=== PATIENT | female | born 1985 | race Caucasian/White ===

== ENCOUNTER 2018-04-21 13:56 | Inpatient (IN) | payer OTHER, MEDICAID, SELFPAY ==
[2018-04-21] VITALS (9 sets, daily range): BP systolic 102–120; BP diastolic 68–84; PULSE 107–119; RESP 10–21; TEMP 35.7–36.7; O2SAT 99–100; BMI 18.3
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
--- NOTE | 2018-04-21 14:00 | DI.RAD.S_ITS ---
PROCEDURE: XR CHEST 1V INDICATIONS: suspected DKA, altered mental status TECHNIQUE: One view of the chest was acquired. COMPARISON: [facility], , CHEST 1 VIEW, 09/25/2017, 8:35. FINDINGS: Surgical changes and devices: None. Lungs and pleura: No pleural effusions or pneumothorax. Lungs are clear. Mediastinum: Mediastinal contours appear normal. Heart size is normal. Bones and chest wall: No suspicious bony lesions. Overlying soft tissues appear unremarkable. IMPRESSION: No acute cardiopulmonary disease process. Dictated by: Reyna Higuera MD, PhD on 04/21/2018 at 15:12 Approved by: Reyna Higuera MD, PhD on 04/21/2018 at 15:13
[2018-04-21] MEDS: SODIUM CHLORIDE 0.9% 1,000 ML 1000 ML IV ×2 (14:20→17:01)
[2018-04-21] MEDS: ONDANSETRON 4 MG/2 ML INJ IV ×2 (14:36→16:53)
[2018-04-21 14:43] LABS: pH ABG 7.09 (7.35-7.45)
[2018-04-21 14:44] LABS: HCO3 ABG 6 mmol/L (23-27); PCO2 ABG 20.3 mmHg (35-45); PO2 ABG 131 mmHg (80-105); TCO2 ABG 7 mmol/L (23-27)
[2018-04-21 14:45] LABS: Oxygen Saturation ABG 98 % (95-100)
[2018-04-21 14:47] LABS: Basophils Percent Auto 0.6 % (0-2); Eosinophils Percent Auto 0.2 % (2-4); Hematocrit 48.2 % (36-46); Lymphocytes Percent Auto 8.3 % (25-40); Mean Corpuscular HGB Conc 33.3 % (30-36); Mean Corpuscular Hemoglobin 33.7 PG (26-34); Mean Corpuscular Volume 101.3 fL (80-100); Monocytes Percent Auto 5.4 % (3-14); Neutrophils Absolute Auto 11900 /uL (3000-5900); Neutrophils Percent Auto 85.5 % (50-75); Platelet Count 274 X10^3/uL (150-400); Red Blood Cell Count 4.76 X10^6/uL (4.0-5.2); Red Cell Distribution Width 13.2 % (11.6-14.8); White Blood Cell Count 13.9 X10^3/uL (4.5-11.0)
[2018-04-21 14:52] LABS: Add Manual Diff / Slide Review SLIDE REVIEW; HEMOLYSIS < 15 (0-50)
--- NOTE | 2018-04-21 14:55 | PC.NURSE ---
1415 Pt vomiting. Notified provider. Gave Zofran, per order.
[2018-04-21 14:57] LABS: Alanine Aminotransferase 38 IU/L (9-52); Albumin 3.6 g/dL (3.5-5.0); Albumin Globulin Ratio 1.6 (1.0-2.8); Alkaline Phosphatase 116 U/L (38-126); Aspartate Aminotransferase 26 IU/L (14-36); BUN Creatinine Ratio 27.8 (6-22); Bilirubin Total 0.3 mg/dL (0.2-1.3); Blood Urea Nitrogen 25 mg/dL (7-17); Calcium 7.9 mg/dL (8.4-10.2); Chloride 96 mmol/L (98-107); Estimated Glomerular Filt Rate > 60.0 mL/min (>60); Globulin 2.3 g/dL (1.7-4.1); Potassium 4.2 mmol/L (3.4-5.1); Sodium 132 mmol/L (137-145); Total Protein 5.9 g/dL (6.3-8.2)
[2018-04-21 14:58] LABS: Lactate (Lactic Acid) 0.9 mmol/L (0.7-2.1)
--- NOTE | 2018-04-21 15:08 | PC.NURSE ---
Pt receiving warmed IV fluids. Covered with warm blankets.
[2018-04-21 15:09] LABS: Urine Amphetamines Negative (Negative); Urine Barbiturates Negative (Negative); Urine Benzodiazepines Negative (Negative); Urine Cocaine Negative (Negative); Urine MDMA Negative (Negative); Urine Methadone Negative (Negative); Urine Methamphetamines Negative (Negative); Urine Morphine/Opi cutoff 2000 Negative (Negative); Urine Phencyclidine Negative (Negative); Urine THC Negative (Negative); Urine Tricyclic Antidepressant Negative (Negative)
[2018-04-21 15:10] LABS: Urine Oxycodone Negative (Negative)
[2018-04-21 15:12] LABS: Bacteria Urine None Seen; RBC Urine None Seen (0-5/HPF); WBC Urine None Seen (0-5/HPF)
[2018-04-21] MEDS: SODIUM CHLORIDE 0.9% 1,000 ML 150 ML IV (15:16)
[2018-04-21 15:19] LABS: Carbon Dioxide 7 mmol/L (22-32); Glucose 575 mg/dL (70-100)
[2018-04-21 15:39] LABS: Procalcitonin < 0.05 ng/mL (<0.5)
[2018-04-21 15:42] LABS: Creatine Kinase 37 U/L (30-135)
[2018-04-21 15:44] LABS: Culture Indicated Urine Cult Not Indicated; Urine Comments Microscopic Normal
--- NOTE | 2018-04-21 15:46 | DI.CT.S_ITS ---
PROCEDURE: CT HEAD/BRAIN W CON INDICATIONS: Acute altered mental status TECHNIQUE: 4.5 mm thick angled axial sections acquired from the foramen magnum to the vertex after the administration of intravenous contrast, with coronal and sagittal reformats. For radiation dose reduction, the following was used: automated exposure control, adjustment of mA and/or kV according to patient size. COMPARISON: None. FINDINGS: Image quality: Excellent. CSF Spaces: Basal cisterns are patent. No extra-axial fluid collections. Ventricles are normal in size and shape. Brain: No midline shift. No intracranial bleeds or masses. No abnormal intracranial enhancement. Taveras-white interface appears normal. Skull and face: Calvarium and visualized facial bones appear intact, without suspicious lesions. Sinuses: Visualized sinuses and mastoids are clear. IMPRESSION: No acute intracranial disease process. Dictated by: Reyna Higuera MD, PhD on 04/21/2018 at 17:01 Approved by: Reyna Higuera MD, PhD on 04/21/2018 at 17:04
[2018-04-21] MEDS: INSULIN REGULAR 100 UNIT/ML 3 ML VIAL IV (16:06)
[2018-04-21] MEDS: INSULIN REGULAR, HUMAN 100 UNIT in SODIUM CHLORIDE 0.9% 100 ML IV (16:16)
--- NOTE | 2018-04-21 16:55 | PC.NURSE ---
Pt to radiology for head CT. While laying supine, she began to try to sit up. States she had to vomit. Assisted pt seated position and she vomited into emesis bag. Lung sounds are clear bilaterally. Provider notified. Zofran administered per order. Pt able oriented to self and situation at this time.
[2018-04-21 17:14] LABS: Macrocytosis 1+
--- NOTE | 2018-04-21 18:08 | PC.NURSE ---
Pt BG down to 288 prior to transfer to ICU. Per Dr. Jimenez, turned down NaCl to 250mL/hr from bolus rate. Notified ICU nurse prior to transfer.
--- NOTE | 2018-04-21 19:44 | PM.HP.1 ---
History of Present Illness Date Patient Seen: 04/21/18 Time Patient Seen: 17:12 Chief complaint: DKA, decreasd LOC Narrative: Patient is a 32 years of age female with history of diabetes mellitus type 1 the past 11 years. Patient states she normally takes Lantus 25 units twice daily along with a insulin sliding scale before meals and at bedtime. Patient notes over the past few days she states she has been in her words out of it so her boyfriend has been trying to administer her insulin for her. As I tried to understand what she meant by being out of it she seemed to be easily annoyed and certainly verbally rude and she responded. I was trying to establish she was feeling ill and in what manner that would cause her to lay in bed for 2-3 days. According to the patient, her boyfriend was trying to get her to come to the hospital to be seen over the past 2-3 days. Patient states she did want to do so because she did not feel he would adequately help her anyway. Urine tox screen was negative. Patient states that the glucose was reading high so greater than 400 for the past 2-3 days. Patient was really not in the mood to answer my questions and became more rude do the length of her conversation. Patient History Medical History Insulin dependent diabetes mellitus (Acute) Family & Social History Social History: household members significant other Prior Living Arrangements Apartment/Condo Safety & Behavioral: Feels Safe in Current Unwilling to Answer Environment Been Physically Hurt or Unwilling to Answer Threatened By a Person Suicidal Ideation Description None Suicide Plan Description No Plan Tobacco & Substance use: Tobacco type cigarettes Smoking Status Current every day smoker Smoking packs per day 0.5 alcohol intake former alcohol intake frequency holiday/special occasion Substance Use Type does not use Comment: Social history Patient notes she lives with her boyfriend. She smokes a half a pack of cigarettes per day. Denies alcohol abuse. Denies illegal street drug use. 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 She says she has not been able to work due to an abscess and blood clot in her leg. Patient does note however that the abscess and trouble with her lower extremity blood clot resolved about a year ago. Family history Patient notes she has a mother and a brother with diabetes Meds Home Medications Medication Instructions Recorded Confirmed Type insulin glargine [Lantus U-100 25 unit SQ BID #0 03/12/17 History Insulin] aspirin 81 mg PO QDAY #0 04/09/17 History cyclobenzaprine 10 mg PO TIDP PRN #0 04/09/17 History ibuprofen 400 mg PO #0 04/09/17 History lisinopril 2.5 mg PO QDAY #0 04/09/17 History fluconazole [Diflucan] 100 mg PO QDAY #5 09/27/17 Rx insulin aspart U-100 [Novolog 0 unit SQ QIDACHS 30 Days #0 09/27/17 Rx Flexpen U-100 Insulin] insulin aspart U-100 [Novolog 10 unit SQ TIDCC 30 Days #0 09/27/17 Rx Flexpen U-100 Insulin] Allergies Allergy/AdvReac Type Severity Reaction Status Date / Time No Known Drug Allergies Allergy Verified 04/21/18 15:21 Review of Systems Review of Systems A 10 point system reviewed with patient was essentially negative except for the complaint that she was out of it in her words and her sugars were running high. She denied having any recent fevers or chills or cough nausea. Exam Vital Signs (past 8 hours): - 04/21/18 14:05 04/21/18 14:27 04/21/18 14:30 Temperature 98.0 F 98.0 F 96.3 F L Pulse Rate 114 H 114 H 111 H Respiratory Rate 21 21 16 Blood Pressure 102/71 Blood Pressure [Left Arm] 102/71 110/84 Pulse Oximetry 100 100 100 04/21/18 15:45 04/21/18 16:45 04/21/18 18:00 Temperature 98.0 F 97.5 F L Pulse Rate 112 H 119 H 113 H Respiratory Rate 12 16 13 Blood Pressure 105/69 Blood Pressure [Left Arm] 103/74 105/68 Pulse Oximetry 100 100 99 Oxygen Delivery Method Room Air Narrative Exam Narrative: Physical exam General appearance patient appears quite edematous since having been given at least 4 L of fluid including IV fluids given in the ER. Patient is easily arousable and certainly easily agitated. Psychiatric patient is well oriented mood is sour in her behavior towards myself and staff. Patient appears to have a negative attitude in general at this time. Skin no rashes or lesions nonjaundiced turgor appears normal patient actually appears to be a bit edematous Eyes pupils are equal round and reactive to light Ears nose and throat hearing appears grossly intact nose septum to midline no bleeding no oropharyngeal lesions noted Respiratory fairly clear to auscultation no wheezes crackles Cardiovascular regular rhythm rate of about 100 per minute no murmurs Gastrointestinal early soft nontender positive bowel sounds no masses Extremities are warm Neurologic no focal neurologic changes cranial nerves 2-12 grossly intact Lymphatics no lymphadenopathy to neck or axilla Objective Labs Result Diagrams: 04/21/18 14:25 04/21/18 14:25 Labs: Laboratory Results - last 24 hr 04/21/18 04/21/18 04/21/18 14:20 14:25 14:25 WBC 13.9 H RBC 4.76 Hgb 16.0 Hct 48.2 H MCV 101.3 H MCH 33.7 MCHC 33.3 RDW 13.2 Plt Count 274 Neut % (Auto) 85.5 H Lymph % (Auto) 8.3 L [place] % (Auto) 5.4 Eos % (Auto) 0.2 L Baso % (Auto) 0.6 Neut # (Auto) 83949 H RBC Morphology Not Reportable Macrocytosis 1+ H ABG pH 7.09 L* ABG pCO2 20.3 L* ABG pO2 131 H ABG HCO3 6 L ABG Total CO2 7 L ABG O2 Saturation 98 ABG Base Excess -24.0 L Sodium Potassium Chloride Carbon Dioxide BUN Creatinine Estimated GFR BUN/Creatinine Ratio Glucose Lactate Calcium Total Bilirubin AST ALT Alkaline Phosphatase Total Creatine Kinase Total Protein Albumin Globulin Albumin/Globulin Ratio Procalcitonin < 0.05 Urine RBC Urine WBC Urine Bacteria Ur Culture Indicated? Micro UA Comment Urine Opiates Screen Ur Oxycodone Screen Urine Methadone Screen Ur Barbiturates Screen U Tricyclic Antidepress Ur Phencyclidine Scrn Ur Amphetamines Screen U Methamphetamines Scrn Ur MDMA Scrn (Ecstasy) U Benzodiazepines Scrn Urine Cocaine Screen U Marijuana (THC) Screen Ketones 04/21/18 04/21/18 04/21/18 14:25 14:25 14:46 WBC RBC Hgb Hct MCV MCH MCHC RDW Plt Count Neut % (Auto) Lymph % (Auto) [place] % (Auto) Eos % (Auto) Baso % (Auto) Neut # (Auto) RBC Morphology Macrocytosis ABG pH ABG pCO2 ABG pO2 ABG HCO3 ABG Total CO2 ABG O2 Saturation ABG Base Excess Sodium 132 L Potassium 4.2 Chloride 96 L Carbon Dioxide 7 L* BUN 25 H Creatinine 0.90 Estimated GFR > 60.0 BUN/Creatinine Ratio 27.8 H Glucose 575 H* Lactate 0.9 Calcium 7.9 L Total Bilirubin 0.3 AST 26 ALT 38 Alkaline Phosphatase 116 Total Creatine Kinase Total Protein 5.9 L Albumin 3.6 Globulin 2.3 Albumin/Globulin Ratio 1.6 Procalcitonin Urine RBC Urine WBC Urine Bacteria Ur Culture Indicated? Micro UA Comment Urine Opiates Screen Negative Ur Oxycodone Screen Negative Urine Methadone Screen Negative Ur Barbiturates Screen Negative U Tricyclic Antidepress Negative Ur Phencyclidine Scrn Negative Ur Amphetamines Screen Negative U Methamphetamines Scrn Negative Ur MDMA Scrn (Ecstasy) Negative U Benzodiazepines Scrn Negative Urine Cocaine Screen Negative U Marijuana (THC) Screen Negative Ketones 14.60 H 04/21/18 04/21/18 14:46 Unknown WBC RBC Hgb Hct MCV MCH MCHC RDW Plt Count Neut % (Auto) Lymph % (Auto) [place] % (Auto) Eos % (Auto) Baso % (Auto) Neut # (Auto) RBC Morphology Macrocytosis ABG pH ABG pCO2 ABG pO2 ABG HCO3 ABG Total CO2 ABG O2 Saturation ABG Base Excess Sodium Potassium Chloride Carbon Dioxide BUN Creatinine Estimated GFR BUN/Creatinine Ratio Glucose Lactate Calcium Total Bilirubin AST ALT Alkaline Phosphatase Total Creatine Kinase 37 Total Protein Albumin Globulin Albumin/Globulin Ratio Procalcitonin Urine RBC None seen Urine WBC None seen Urine Bacteria None seen Ur Culture Indicated? Cult not indicated Micro UA Comment Microscopic normal Urine Opiates Screen Ur Oxycodone Screen Urine Methadone Screen Ur Barbiturates Screen U Tricyclic Antidepress Ur Phencyclidine Scrn Ur Amphetamines Screen U Methamphetamines Scrn Ur MDMA Scrn (Ecstasy) U Benzodiazepines Scrn Urine Cocaine Screen U Marijuana (THC) Screen Ketones Assessment & Plan Plan: Assessment/Plan Narrative: 1. Diabetic ketoacidosis Note anion gap of 35 on admission and serum bicarb of 7. ABG reported pH is 7.09 and exceeding 6.9. Serum bicarb not indicated. IV fluids given aggressively since her presentation in the ER. Since edematous as needed at present will reduce the IV rate. Glucose level 211 at present. Will change IV to D5 half normal at 75 cc an hour or she starts eating a reasonable portion in meal. Will start patient on Lantus at 20 units subcu once and provide a medium dose insulin sliding scale with aspart. Patient will likely be a good candidate for discharge tomorrow in a.m.. We will monitor her lab work tonight and tomorrow in a.m.. Time spent to manage patient 65 min
[2018-04-21] MEDS: DEXTROSE 5%-0.45% NS 1,000 ML 100 ML IV (20:30)
[2018-04-21] MEDS: INSULIN GLARGINE 100 UNIT/ML 3ML PEN 20 UNIT SUBCUT (21:27)
[2018-04-21 21:34] LABS: BUN Creatinine Ratio 33.3 (6-22); Blood Urea Nitrogen 20 mg/dL (7-17); Carbon Dioxide 13 mmol/L (22-32); Chloride 109 mmol/L (98-107); Estimated Glomerular Filt Rate > 60.0 mL/min (>60); Glucose 205 mg/dL (70-100); Potassium 3.8 mmol/L (3.4-5.1); Sodium 138 mmol/L (137-145)
[2018-04-21 21:48] LABS: HEMOLYSIS 20 (0-50)
[2018-04-21 21:49] LABS: Calcium 6.9 mg/dL (8.4-10.2)
--- NOTE | 2018-04-21 23:10 | PC.NURSE ---
kassi note Pt lethargic. When physician came to interview patient, pt irritable, using profanity. Resistant to answering questions for admission assessment. Pt did wake up enough to eat sandwich, drink juice. Pt called boyfriend to bring clothes. Boyfriend found in bed with patient, sleeping. Asked boyfriend to leave and he was agreeable. Pt now crying. Explained that overnight visitors discouraged in ICU.
[2018-04-21] MEDS: INSULIN ASPART 100 UNIT/ML INSULN PEN SUBCUT (23:45)
[2018-04-22] VITALS (9 sets, daily range): BP systolic 94–113; BP diastolic 58–72; PULSE 98–115; RESP 12–16; TEMP 37–37.2; O2SAT 95–98
--- NOTE | 2018-04-22 06:21 | PC.NURSE ---
Wellness Trainer Note: 0000: Sleeping, arousable. Pt follows commands but does not want to sit up and converse. Vital signs stable. Pt received Novalog insulin at 2330 by Nila Arana RN. Carbone catheter patent, urine is clear yellow. IVs are saline-locked. Face and hands are puffy and with pink mottling. 0200: Sleeping, arousable.
[2018-04-22 06:22] LABS: Fractionated Inspired Oxygen 21; HCO3 ABG 19 mmol/L (23-27); Oxygen Saturation ABG 96 % (95-100); PCO2 ABG 37.6 mmHg (35-45); PO2 ABG 88 mmHg (80-105); TCO2 ABG 20 mmol/L (23-27); pH ABG 7.31 (7.35-7.45)
[2018-04-22 06:23] LABS: Add Manual Diff / Slide Review NO; Basophils Percent Auto 0.7 % (0-2); Eosinophils Percent Auto 1.1 % (2-4); Hematocrit 43.9 % (36-46); Hemoglobin 15.3 g/dL (12.0-16.0); Lymphocytes Percent Auto 26.2 % (25-40); Mean Corpuscular HGB Conc 34.9 % (30-36); Mean Corpuscular Hemoglobin 33.6 PG (26-34); Mean Corpuscular Volume 96.4 fL (80-100); Monocytes Percent Auto 7.9 % (3-14); Neutrophils Absolute Auto 6400 /uL (3000-5900); Neutrophils Percent Auto 64.1 % (50-75); Platelet Count 240 X10^3/uL (150-400); Red Blood Cell Count 4.56 X10^6/uL (4.0-5.2); White Blood Cell Count 10.1 X10^3/uL (4.5-11.0)
[2018-04-22 06:33] LABS: Blood Urea Nitrogen 18 mg/dL (7-17); Calcium 7.6 mg/dL (8.4-10.2); Carbon Dioxide 22 mmol/L (22-32); Chloride 108 mmol/L (98-107); Estimated Glomerular Filt Rate > 60.0 mL/min (>60); Glucose 75 mg/dL (70-100); HEMOLYSIS 18 (0-50); Potassium 3.3 mmol/L (3.4-5.1); Sodium 138 mmol/L (137-145)
[2018-04-22] MEDS: INSULIN ASPART 100 UNIT/ML INSULN PEN SUBCUT ×2 (08:43→12:13)
[2018-04-22] MEDS: SODIUM CHLORIDE 0.9% FLUSH 10 ML IV (08:44)
[2018-04-22] MEDS: POTASSIUM CHLORIDE 20 MEQ/15 ML UDC 40 MEQ PO (11:04)
--- NOTE | 2018-04-22 11:38 | P.DS_ITS ---
History of Present Illness Date Patient Seen: 04/22/18 Time Patient Seen: 11:27 Chief complaint: DKA, decreasd LOC Narrative: Patient is a 32 years of age female with history of diabetes mellitus type 1 the past 11 years. Patient states she normally takes Lantus 25 units twice daily along with a insulin sliding scale before meals and at bedtime. Patient notes over the past few days she states she has been in her words out of it so her boyfriend has been trying to administer her insulin for her. As I tried to understand what she meant by being out of it she seemed to be easily annoyed and certainly verbally rude as she responded. I was trying to establish why she was feeling so ill that would cause her to lay in bed for 2-3 days. According to the patient, her boyfriend was trying to get her to come to the hospital to be seen over the past 2-3 days. Patient states she did want to do so because she did not feel he would adequately help her anyway. Urine tox screen was negative. Patient states that the glucose was reading high so greater than 400 for the past 2-3 days. Patient was really not in the mood to answer my questions and became more rude doing our conversation. Discharge Providers Date of admission: 04/21/18 16:02 Discharge provider: Job Lu MD Summary Discharge Diagnosis: 1. Diabetic ketoacidosis resolved 2. Hypokalemia resolved Hospital Course: Patient is a 32 years of age female who laid in bed for 2-3 days and had her boyfriend trying to administer the insulin. It is certainly unclear why she would be laying on the bed as she did. Patient has been found consistently rude to all the staff, including myself. There may be an underlying antisocial personality disorder. Patient appears to be avoiding conversation and direct eye contact. I have visited the patient on different occasions and each time she just lays in the bed with her eyes closed answering the questions eventually. The nursing staff notes that the patient be seem sleeping but then appropriately respond if offered something to eat or drink. Patient notes that she has not been employed for the past 3 years. She was very vague about her work history and social situation. Urine tox screen was negative on admission. Compliance with her home medication is questionable. Patient responded to the fluids provided and the insulin IV infusion was terminated fairly early in hospital course once the reported glucose was approximately 200. Patient was resumed on her usual home dose of Lantus. Patient in a.m. today on day of discharge claims that she takes Lantus 30 units b.i.d.. Pharmacy could not corroborate what dosing of Lantus she takes. Status at Discharge Cognitive/behavioral status at discharge: Cognition appears to be intact though her behavior is certainly below appropriate unusual. As stated patient has been rude to the staff and unappologetic. There may be an underlying personality disorder to explain her behavior. Functional status at discharge: independent ambulation Time Spent with Patient Greater than 30 minutes (40 min) Exam Vital Signs (past 8 hours): - 04/22/18 04:00 04/22/18 05:00 04/22/18 06:00 Temperature Pulse Rate 104 H 102 H 106 H Respiratory Rate 16 16 14 Blood Pressure 113/65 94/67 99/71 Pulse Oximetry 95 04/22/18 08:00 04/22/18 09:00 Temperature 98.6 F Pulse Rate 114 H 98 H Respiratory Rate 14 13 Blood Pressure 102/58 L 96/61 Pulse Oximetry 96 Oxygen Delivery Method Room Air Oxygen Flow Rate 0 Narrative Exam Narrative: General appearance patient is not particularly cooperative or polite toward staff. Patient appears to answer questions appropriately when asked. Patient remains in her supine sleep position while staff may trial engage with her. I found this to be true and her encounter with me as well. Respiratory clear to auscultation no wheezes no crackles Cardiovascular regular rate rhythm no murmurs GI is benign soft nontender Neurologic no focal neurologic changes Objective Labs Result Diagrams: 04/22/18 06:15 04/22/18 06:15 Labs: Laboratory Results - last 24 hr 04/21/18 04/21/18 04/21/18 14:20 14:25 14:25 WBC 13.9 H RBC 4.76 Hgb 16.0 Hct 48.2 H MCV 101.3 H MCH 33.7 MCHC 33.3 RDW 13.2 Plt Count 274 Neut % (Auto) 85.5 H Lymph % (Auto) 8.3 L [place] % (Auto) 5.4 Eos % (Auto) 0.2 L Baso % (Auto) 0.6 Neut # (Auto) 04894 H RBC Morphology Not Reportable Macrocytosis 1+ H ABG pH 7.09 L* ABG pCO2 20.3 L* ABG pO2 131 H ABG HCO3 6 L ABG Total CO2 7 L ABG O2 Saturation 98 ABG Base Excess -24.0 L FiO2 Sodium Potassium Chloride Carbon Dioxide BUN Creatinine Estimated GFR BUN/Creatinine Ratio Glucose Lactate Calcium Total Bilirubin AST ALT Alkaline Phosphatase Total Creatine Kinase Total Protein Albumin Globulin Albumin/Globulin Ratio Procalcitonin < 0.05 Urine RBC Urine WBC Urine Bacteria Ur Culture Indicated? Micro UA Comment Nasal Screen MRSA (PCR) Urine Opiates Screen Ur Oxycodone Screen Urine Methadone Screen Ur Barbiturates Screen U Tricyclic Antidepress Ur Phencyclidine Scrn Ur Amphetamines Screen U Methamphetamines Scrn Ur MDMA Scrn (Ecstasy) U Benzodiazepines Scrn Urine Cocaine Screen U Marijuana (THC) Screen Ketones 04/21/18 04/21/18 04/21/18 14:25 14:25 14:46 WBC RBC Hgb Hct MCV MCH MCHC RDW Plt Count Neut % (Auto) Lymph % (Auto) [place] % (Auto) Eos % (Auto) Baso % (Auto) Neut # (Auto) RBC Morphology Macrocytosis ABG pH ABG pCO2 ABG pO2 ABG HCO3 ABG Total CO2 ABG O2 Saturation ABG Base Excess FiO2 Sodium 132 L Potassium 4.2 Chloride 96 L Carbon Dioxide 7 L* BUN 25 H Creatinine 0.90 Estimated GFR > 60.0 BUN/Creatinine Ratio 27.8 H Glucose 575 H* Lactate 0.9 Calcium 7.9 L Total Bilirubin 0.3 AST 26 ALT 38 Alkaline Phosphatase 116 Total Creatine Kinase Total Protein 5.9 L Albumin 3.6 Globulin 2.3 Albumin/Globulin Ratio 1.6 Procalcitonin Urine RBC Urine WBC Urine Bacteria Ur Culture Indicated? Micro UA Comment Nasal Screen MRSA (PCR) Urine Opiates Screen Negative Ur Oxycodone Screen Negative Urine Methadone Screen Negative Ur Barbiturates Screen Negative U Tricyclic Antidepress Negative Ur Phencyclidine Scrn Negative Ur Amphetamines Screen Negative U Methamphetamines Scrn Negative Ur MDMA Scrn (Ecstasy) Negative U Benzodiazepines Scrn Negative Urine Cocaine Screen Negative U Marijuana (THC) Screen Negative Ketones 14.60 H 04/21/18 04/21/18 04/21/18 14:46 18:05 21:16 WBC RBC Hgb Hct MCV MCH MCHC RDW Plt Count Neut % (Auto) Lymph % (Auto) [place] % (Auto) Eos % (Auto) Baso % (Auto) Neut # (Auto) RBC Morphology Macrocytosis ABG pH ABG pCO2 ABG pO2 ABG HCO3 ABG Total CO2 ABG O2 Saturation ABG Base Excess FiO2 Sodium 138 Potassium 3.8 Chloride 109 H Carbon Dioxide 13 L BUN 20 H Creatinine 0.60 Estimated GFR > 60.0 BUN/Creatinine Ratio 33.3 H Glucose 205 H D Lactate Calcium 6.9 L Total Bilirubin AST ALT Alkaline Phosphatase Total Creatine Kinase Total Protein Albumin Globulin Albumin/Globulin Ratio Procalcitonin Urine RBC None seen Urine WBC None seen Urine Bacteria None seen Ur Culture Indicated? Cult not indicated Micro UA Comment Microscopic normal Nasal Screen MRSA (PCR) Negative for mrsa Urine Opiates Screen Ur Oxycodone Screen Urine Methadone Screen Ur Barbiturates Screen U Tricyclic Antidepress Ur Phencyclidine Scrn Ur Amphetamines Screen U Methamphetamines Scrn Ur MDMA Scrn (Ecstasy) U Benzodiazepines Scrn Urine Cocaine Screen U Marijuana (THC) Screen Ketones 04/21/18 04/22/18 04/22/18 Unknown 06:00 06:15 WBC 10.1 RBC 4.56 Hgb 15.3 Hct 43.9 MCV 96.4 D MCH 33.6 MCHC 34.9 RDW 13.0 Plt Count 240 Neut % (Auto) 64.1 D Lymph % (Auto) 26.2 [place] % (Auto) 7.9 Eos % (Auto) 1.1 L Baso % (Auto) 0.7 Neut # (Auto) 6400 H RBC Morphology Macrocytosis ABG pH 7.31 L ABG pCO2 37.6 ABG pO2 88 ABG HCO3 19 L ABG Total CO2 20 L ABG O2 Saturation 96 ABG Base Excess -7.0 L FiO2 21 Sodium Potassium Chloride Carbon Dioxide BUN Creatinine Estimated GFR BUN/Creatinine Ratio Glucose Lactate Calcium Total Bilirubin AST ALT Alkaline Phosphatase Total Creatine Kinase 37 Total Protein Albumin Globulin Albumin/Globulin Ratio Procalcitonin Urine RBC Urine WBC Urine Bacteria Ur Culture Indicated? Micro UA Comment Nasal Screen MRSA (PCR) Urine Opiates Screen Ur Oxycodone Screen Urine Methadone Screen Ur Barbiturates Screen U Tricyclic Antidepress Ur Phencyclidine Scrn Ur Amphetamines Screen U Methamphetamines Scrn Ur MDMA Scrn (Ecstasy) U Benzodiazepines Scrn Urine Cocaine Screen U Marijuana (THC) Screen Ketones 04/22/18 06:15 WBC RBC Hgb Hct MCV MCH MCHC RDW Plt Count Neut % (Auto) Lymph % (Auto) [place] % (Auto) Eos % (Auto) Baso % (Auto) Neut # (Auto) RBC Morphology Macrocytosis ABG pH ABG pCO2 ABG pO2 ABG HCO3 ABG Total CO2 ABG O2 Saturation ABG Base Excess FiO2 Sodium 138 Potassium 3.3 L Chloride 108 H Carbon Dioxide 22 BUN 18 H Creatinine 0.50 L Estimated GFR > 60.0 BUN/Creatinine Ratio 36.0 H Glucose 75 D Lactate Calcium 7.6 L Total Bilirubin AST ALT Alkaline Phosphatase Total Creatine Kinase Total Protein Albumin Globulin Albumin/Globulin Ratio Procalcitonin Urine RBC Urine WBC Urine Bacteria Ur Culture Indicated? Micro UA Comment Nasal Screen MRSA (PCR) Urine Opiates Screen Ur Oxycodone Screen Urine Methadone Screen Ur Barbiturates Screen U Tricyclic Antidepress Ur Phencyclidine Scrn Ur Amphetamines Screen U Methamphetamines Scrn Ur MDMA Scrn (Ecstasy) U Benzodiazepines Scrn Urine Cocaine Screen U Marijuana (THC) Screen Ketones Discharge Plan Discharge Plan Patient Disposition: Home Provider Discharge Instructions Diet: Carb-consistent/Diabetic Skin/Wound/Dressing Care Report to your healthcare provider any signs of infection, such as:: chills, fever, night sweats, increased pain and unusual drainage Discharge Data Attending Provider: Job Lu Admit Date/Time: 04/21/18 16:02
--- NOTE | 2018-04-22 12:22 | PC.NURSE ---
Pt mostly sleeping but rouses easily. Irritable with staff stating Stop asking me F...ing questions. I am not going to answer them Attempted to give teaching on diabetic management but pt refused stating I know what to do. Requesting food - given breakfast at 0930, but she states she wants another fullbreakfast at lunchtime. Feels hungry. noted eating crackers and cookies throughout the am. CBG at 1200 = 254 - given 5 units of coverage and then discharged. IV x2 removed and pt signed paperwork. Pt expressing dissatisfaction with staff. No one has monitored me while I was here. Pt advised that we monitored her every 4 hours and hourly vital signs. Carbone catheter removed and pt dressed and taken by wheelchair to waiting vehicle. Pt advised to contact PCP as soon as possible. Given script for lantus.
--- NOTE | 2018-04-22 14:13 | CM.DPNOTE ---
DCP/Note: Faxed initial clinical to [facility] at . [facility]
[2018-04-30 13:51] LABS: Fractionated Inspired Oxygen 0.21
== END 2018-04-22 12:36 | disposition home or self-care (01) | DRG 420 ==
LOC: ED 15:57 → ICU 16:03
PROVIDERS: Admitting Provider Internal Medicine; Emergency Provider Emergency Medicine; Visit Provider Internal Medicine
DX: E10.10 Type 1 diabetes mellitus with ketoacidosis without coma (principal); Z79.4 Long term (current) use of insulin; F17.210 Nicotine dependence, cigarettes, uncomplicated; E87.6 Hypokalemia; R40.0 Somnolence
CPT/HCPCS: 36415; 36591; 36600; 51701; 70460; 71045; 80048; 80053; 80305; 81003; 81015; 81025; 82009; 82550; 82805; 82962; 83605; 84145; 85025; 87040; 87797; 93005; 93010; 96361; 96365; 96367; 96375; 96376; 99285; 99291; J2405

== ENCOUNTER 2018-07-13 08:55 | Inpatient (IN) | payer OTHER, MEDICAID, SELFPAY ==
[2018-04-21 18:57] VITALS: BMI 18.3
[2018-07-13] VITALS (18 sets, daily range): BP systolic 93–116; BP diastolic 48–91; PULSE 96–119; RESP 11–30; TEMP 35.8–37.6; O2SAT 94–100; BMI 16.2
--- NOTE | 2018-07-13 09:00 | DI.RAD.S_ITS ---
PROCEDURE: XR HAND LT MIN 3V INDICATIONS: Left middle finger infection TECHNIQUE: 3 views of the hand(s) acquired. COMPARISON: None. FINDINGS: Bones: No fractures or dislocations. Carpal bones are normally aligned. No suspicious bony lesions. Soft tissues: No suspicious soft tissue calcifications. IMPRESSION: No acute fracture. No osseous lesion. If clinical suspicion and/or symptoms persist, further assessment with repeat plainfilms, or advanced imaging (e.g., CT, MRI, or bone scan) may be helpful for further assessment. Dictated by: Bryon Plascencia M.D. on 07/13/2018 at 9:52 Approved by: Bryon Plascencia M.D. on 07/13/2018 at 9:52
--- NOTE | 2018-07-13 09:00 | ED.AMS ---
HPI - Altered Mental Status General Chief Complaint: Diabetic Problem Stated Complaint: Unresponsive, Diabetic Time Seen by Provider: 07/13/18 08:59 Source: EMS Mode of arrival: EMS Limitations: altered mental status History of Present Illness HPI narrative: Patient unable to provide any history of present illness. Patient arrived by would be EMS after they were called by the patient's . Is reported that the patient is a diabetic. It appears that she has had an infection of her left finger for several days/weeks. Unknown if she is currently taking any antibiotics or has been seen for this. Is reported by EMS that they were told by the patient's that for the past several days she has been ?unresponsive? except to very painful stimuli. It was reported by the patient's that this morning the patient was even more unresponsive even to painful stimuli. Was also reported the patient was having deep breathing. They were called. Prior to arrival EMS started 2 18 gauge IVs and the patient was given 800 cc of normal saline. No Narcan was given. There is no signs of reports of trauma. Related Data Home Medications Medication Instructions Recorded Confirmed aspirin 81 mg PO QDAY #0 04/09/17 cyclobenzaprine 10 mg PO TIDP PRN #0 04/09/17 ibuprofen 400 mg PO #0 04/09/17 lisinopril 2.5 mg PO QDAY #0 04/09/17 Previous Rx's Medication Instructions Recorded fluconazole [Diflucan] 100 mg PO QDAY #5 09/27/17 insulin aspart U-100 [Novolog 0 unit SQ QIDACHS 30 Days #0 09/27/17 Flexpen U-100 Insulin] insulin aspart U-100 [Novolog 10 unit SQ TIDCC 30 Days #0 09/27/17 Flexpen U-100 Insulin] insulin glargine [Lantus U-] 30 unit SUBCUT BID #10 ml 04/22/18 Allergies Allergy/AdvReac Type Severity Reaction Status Date / Time No Known Drug Allergies Allergy Verified 04/21/18 15:21 Review of Systems Review of Systems Unable to obtain secondary to the patient's medical condition Exam Initial Vital Signs Initial Vital Signs: Vital Signs Temperature 96.6 F L 07/13/18 09:05 Pulse Rate 104 H 07/13/18 09:05 Respiratory Rate 26 H 07/13/18 09:05 Blood Pressure 109/81 07/13/18 09:05 Pulse Oximetry 100 07/13/18 09:05 Const General: comfortable, well groomed, in distress, No anxious, No combative, ill appearing and well hydrated Orientation: not alert, not awake and not oriented x3 Limitations: altered mental status [facility] Head: normal to inspection and normocephalic Eyes Other: Left sclera cloudy and appears to be a cataract unsure if this is new Right sclera unremarkable Pupils 3 mm bilaterally minimally reactive Neck Neck: trachea midline and No midline deformity Lymphatic: No lymphadenopathy Chest Chest: normal inspection of the chest and No crepitus Resp Effort & Inspection: not labored, no respiratory distress, no retractions and tachypneic Auscultation: clear to auscultation bilaterally, no rales and no rhonchi Other: Tachypneic, deep respirations Cardio Rate: tachycardic Rhythm: regular rhythm Heart Sounds: no murmurs Pulses: radial pulses present GI Inspection: non-distended Palpation: soft and No rigid Back/Spine/Pelvis Back: normal to inspection Skin Other: Multiple mata throughout her body in various stages of healing. No rashes. Patient with erythema over the left middle finger with a 1 cm area of purulent drainage. Does not extend proximal to the MCP joint. Neuro Other: Patient is altered Does not follow commands Maintaining airway Is responsive to very deep painful stimuli of the left foot Extrem Other: No gross deformities Swelling of the left middle finger Psych Appearance: disheveled Scores GCS [place] coma scale eye opening: None [place] coma scale verbal response: None [place] coma scale motor response: Normal flexion [place] coma scale total score: 6 Course Orders Ordered: ED Orders 07/13/18 08:50 EKG-12 Lead Stat 07/13/18 09:00 XR hand LT min 3V Stat 07/13/18 09:09 Arterial Blood Gas Stat Complete Blood Count AUTO DIFF Stat 07/13/18 09:10 Blood Culture Stat Comprehensive Metabolic Panel Stat Ethanol (ETOH) Stat Hemoglobin A1C % Stat Ketones (Beta-Hydroxybutyrate) Stat Lactate (Lactic Acid) Stat Lipase Stat Magnesium Stat Osmolality, Serum Stat Phosphorous Stat Procalcitonin Stat 07/13/18 09:25 Urine Culture Stat Urine Drug Screen, Rapid Stat Dextrose (D50w) 25 gm IV PRN PRN PRN Reason: Hypoglycemia Insulin Human Regular 100 unit (/ Sodium Chloride) 100 mls @ 6 mls/hr IV TITRATE SALAS; Protocol Sodium Chloride (Normal Saline 0.9%) 1,000 mls @ 100 mls/hr IV CONT SALAS Last Admin: 07/13/18 10:46 Dose: 100 mls/hr Sodium Bicarbonate 150 meq/ (Sterile Water) 550 mls @ 200 mls/hr IV CONT SALAS Ondansetron HCl (Zofran) 4 mg IV Q4HR PRN PRN Reason: Nausea And Vomiting Discontinued Medications Sodium Chloride (Normal Saline 0.9%) 1,000 mls @ 1,000 mls/hr IV BOLUS ONE Stop: 07/13/18 09:47 Last Infusion: 07/13/18 10:20 Dose: 0 mls/hr Admin: 07/13/18 09:31 Dose: 1,000 mls/hr Piperacillin/Tazobactam/Dextrose (Zosyn) 3.375 gm in 50 mls @ 100 mls/hr IV NOW ONE Stop: 07/13/18 09:30 Last Infusion: 07/13/18 10:05 Dose: 0 mls/hr Admin: 07/13/18 09:31 Dose: 100 mls/hr Vancomycin HCl/Dextrose (Vancomycin) 1,000 mg in 200 mls @ 200 mls/hr IV NOW ONE Stop: 07/13/18 10:00 Last Infusion: 07/13/18 10:46 Dose: 0 mls/hr Admin: 07/13/18 09:31 Dose: 200 mls/hr Potassium Chloride/Sodium Chloride (Ns With Kcl 20 Meq) 1,000 mls @ 100 mls/hr IV CONT SALAS Insulin Human Regular 100 unit (/ Sodium Chloride) 100 mls @ 6 mls/hr IV TITRATE SALAS; Protocol Vital Signs - 8 hr 07/13/18 09:05 07/13/18 09:42 07/13/18 10:07 Temperature 96.6 F L 96.6 F L Pulse Rate 104 H 98 H 97 H Respiratory Rate 26 H 18 16 Blood Pressure 109/81 109/81 Blood Pressure [Left Arm] 116/79 102/76 Pulse Oximetry 100 100 100 07/13/18 10:18 Temperature Pulse Rate 96 H Respiratory Rate 17 Blood Pressure Blood Pressure [Left Arm] 100/56 L Pulse Oximetry 100 MDM - Altered Mental Status Lab Data Attestation: I reviewed the patient's lab results. Result diagrams: 07/13/18 09:09 07/13/18 09:10 Lab Results 07/13/18 07/13/18 07/13/18 Range/Units 09:09 09:09 09:10 WBC 24.5 H (4.5-11.0) X10^3/uL RBC 4.43 (4.0-5.2) X10^6/uL Hgb 14.9 (12.0-16.0) g/dL Hct 45.3 (36-46) % MCV 102.3 H (80-100) fL MCH 33.6 (26-34) PG MCHC 32.9 (30-36) % RDW 14.1 (11.6-14.8) % Plt Count 420 H (150-400) X10^3/uL Neut % (Auto) Not Reportable Lymph % (Auto) Not Reportable [place] % (Auto) Not Reportable Eos % (Auto) Not Reportable Baso % (Auto) Not Reportable Total Counted 100 Seg Neutrophils % 57.0 (38-70) % Band Neutrophils % 29.0 H (3-7) % Lymphocytes % (Manual) 7.0 L (25-45) % Monocytes % (Manual) 6.0 (2-11) % Basophils % (Manual) 1.0 (0-1) % Neutrophils # (Manual) 47926 H (9306-1848) /uL RBC Morphology Not Reportable Macrocytosis 2+ H ABG pH 6.93 L* (7.35-7.45) ABG pCO2 7.4 L* (35-45) mmHg ABG pO2 149 H (80-105) mmHg ABG HCO3 2 L (23-27) mmol/L ABG Total CO2 < 5 L (23-27) mmol/L ABG O2 Saturation 97 (95-100) % ABG Base Excess < -30.0 L (-2-3) mmol/L FiO2 0.21 Sodium 135 L (137-145) mmol/L Potassium 3.9 (3.4-5.1) mmol/L Chloride 102 (98-107) mmol/L Carbon Dioxide < 5 L* (22-32) mmol/L BUN 24 H (7-17) mg/dL Creatinine 0.80 (0.52-1.04) mg/dL Estimated GFR > 60.0 (>60) mL/min BUN/Creatinine Ratio 30.0 H (6-22) Glucose 434 H (70-100) mg/dL Lactate (0.7-2.1) mmol/L Calcium 7.8 L (8.4-10.2) mg/dL Phosphorus 3.6 (2.5-4.5) mg/dL Magnesium 1.9 (1.6-2.3) mg/dL Total Bilirubin 0.2 (0.2-1.3) mg/dL AST 15 (14-36) IU/L ALT 23 (9-52) IU/L Alkaline Phosphatase 123 (38-126) U/L Total Protein 6.0 L (6.3-8.2) g/dL Albumin 3.4 L (3.5-5.0) g/dL Globulin 2.6 (1.7-4.1) g/dL Albumin/Globulin Ratio 1.3 (1.0-2.8) Lipase 134 (23-300) U/L Procalcitonin (<0.5) ng/mL Urine Opiates Screen (Negative) Ur Oxycodone Screen (Negative) Urine Methadone Screen (Negative) Ur Barbiturates Screen (Negative) U Tricyclic Antidepress (Negative) Ur Phencyclidine Scrn (Negative) Ur Amphetamines Screen (Negative) U Methamphetamines Scrn (Negative) Ur MDMA Scrn (Ecstasy) (Negative) U Benzodiazepines Scrn (Negative) Urine Cocaine Screen (Negative) U Marijuana (THC) Screen (Negative) Ethyl Alcohol < 10 mg/dL Ketones 17.47 H (<0.27) mmol/L 07/13/18 07/13/18 07/13/18 Range/Units 09:10 09:10 09:25 WBC (4.5-11.0) X10^3/uL RBC (4.0-5.2) X10^6/uL Hgb (12.0-16.0) g/dL Hct (36-46) % MCV (80-100) fL MCH (26-34) PG MCHC (30-36) % RDW (11.6-14.8) % Plt Count (150-400) X10^3/uL Neut % (Auto) Lymph % (Auto) [place] % (Auto) Eos % (Auto) Baso % (Auto) Total Counted Seg Neutrophils % (38-70) % Band Neutrophils % (3-7) % Lymphocytes % (Manual) (25-45) % Monocytes % (Manual) (2-11) % Basophils % (Manual) (0-1) % Neutrophils # (Manual) (1446-3835) /uL RBC Morphology Macrocytosis ABG pH (7.35-7.45) ABG pCO2 (35-45) mmHg ABG pO2 (80-105) mmHg ABG HCO3 (23-27) mmol/L ABG Total CO2 (23-27) mmol/L ABG O2 Saturation (95-100) % ABG Base Excess (-2-3) mmol/L FiO2 Sodium (137-145) mmol/L Potassium (3.4-5.1) mmol/L Chloride (98-107) mmol/L Carbon Dioxide (22-32) mmol/L BUN (7-17) mg/dL Creatinine (0.52-1.04) mg/dL Estimated GFR (>60) mL/min BUN/Creatinine Ratio (6-22) Glucose (70-100) mg/dL Lactate 0.7 (0.7-2.1) mmol/L Calcium (8.4-10.2) mg/dL Phosphorus (2.5-4.5) mg/dL Magnesium (1.6-2.3) mg/dL Total Bilirubin (0.2-1.3) mg/dL AST (14-36) IU/L ALT (9-52) IU/L Alkaline Phosphatase (38-126) U/L Total Protein (6.3-8.2) g/dL Albumin (3.5-5.0) g/dL Globulin (1.7-4.1) g/dL Albumin/Globulin Ratio (1.0-2.8) Lipase (23-300) U/L Procalcitonin 0.06 (<0.5) ng/mL Urine Opiates Screen Negative (Negative) Ur Oxycodone Screen Negative (Negative) Urine Methadone Screen Negative (Negative) Ur Barbiturates Screen Negative (Negative) U Tricyclic Antidepress Negative (Negative) Ur Phencyclidine Scrn Negative (Negative) Ur Amphetamines Screen Positive H (Negative) U Methamphetamines Scrn Negative (Negative) Ur MDMA Scrn (Ecstasy) Negative (Negative) U Benzodiazepines Scrn Negative (Negative) Urine Cocaine Screen Negative (Negative) U Marijuana (THC) Screen Negative (Negative) Ethyl Alcohol mg/dL Ketones (<0.27) mmol/L Point of Care Testing Test Results Negative Glucose POC 368 Urine Dip Bedside Urine Glucose 500 mg/dl Bedside Urine Bilirubin - Negative Bedside Urine Ketone +++ 80 Urine Specific [place] 1.030 Bedside Urine Occult Blood ++ Bedside Urine pH 6.0 Bedside Urine Protein + 30 Bedside Urine Urobilinogen - Negative Bedside Urine Nitrite - Negative Bedside Urine Leukocytes - Negative Esterase ABG Data ABG results: PH 6.9, pCO2 7.4 PO2 149 Attestation: I personally reviewed and interpreted this ABG as follows: Interpretation: Metabolic acidosis Imaging Data Hand x-ray: Radiologist's impression: No acute abnormalities ECG Data Attestation: I personally reviewed and interpreted this ECG as follows: Prior ECG tracings: not available for review Interpretation: Sinus tachycardia Ventricular rate of 104 Normal axis Normal QRS Normal QTC Nonspecific ST T wave changes MDM Narrative Medical decision making narrative: Patient is acidotic, hyperglycemic and has ketones. Her exam is consistent with DKA. She was given fluids. Her potassium was evaluated. Insulin drip was started. No insulin bolus was started. I suspect that the DKA is from the infection in her left finger. Antibiotics were started. Cultures were started. This could also be due to medication noncompliance however I do not know if this is true because family is not at bedside. There is no reports of this by EMS. The patient is maintaining her airway. I feel that she does not need to be intubated. I discussed the case with Dr. Guzman who recommended the bicarb drip secondary to her acidosis. Will admit the patient to the ICU. Critical Care Time Critical Care Time: Yes Total Critical Care Time: 50 Attestation: The high probability of a clinically significant, sudden or life threatening deterioration of the endocrine and neurologic system(s) required my full and direct attention, intervention and personal management. The aggregate critical care time was 50 minutes. This time is in addition to time spent performing reported procedures but includes the following: [] Data Review and interpretation [] Patient assessment and monitoring of vital signs [] Documentation [] Medication orders and management Discharge Plan Departure Patient Disposition: Admitted As Inpatient Clinical Impression: Diabetic keto-acidosis, Cellulitis, Altered mental status, Hyponatremia
[2018-07-13 09:23] LABS: Base Excess ABG < -30.0 mmol/L (-2-3); Fractionated Inspired Oxygen 0.21; HCO3 ABG 2 mmol/L (23-27); Oxygen Saturation ABG 97 % (95-100); PCO2 ABG 7.4 mmHg (35-45); PO2 ABG 149 mmHg (80-105); TCO2 ABG < 5 mmol/L (23-27); pH ABG 6.93 (7.35-7.45)
[2018-07-13 09:30] LABS: Hematocrit 45.3 % (36-46); Hemoglobin 14.9 g/dL (12.0-16.0); Mean Corpuscular HGB Conc 32.9 % (30-36); Mean Corpuscular Hemoglobin 33.6 PG (26-34); Mean Corpuscular Volume 102.3 fL (80-100); Platelet Count 420 X10^3/uL (150-400); Red Blood Cell Count 4.43 X10^6/uL (4.0-5.2); Red Cell Distribution Width 14.1 % (11.6-14.8); White Blood Cell Count 24.5 X10^3/uL (4.5-11.0)
[2018-07-13] MEDS: PIPERACILLIN-TAZO 3.375 GM/50 ML FROZ.PIGGY IV ×3 (09:31→21:17)
[2018-07-13] MEDS: SODIUM CHLORIDE 0.9% 1,000 ML 1000 ML IV (09:31)
[2018-07-13] MEDS: VANCOMYCIN 1,000 MG/200 ML FROZ.PIGGY 200 MG IV (09:31)
[2018-07-13 09:33] LABS: Add Manual Diff / Slide Review YES
[2018-07-13 09:41] LABS: Alanine Aminotransferase 23 IU/L (9-52); Albumin 3.4 g/dL (3.5-5.0); Albumin Globulin Ratio 1.3 (1.0-2.8); Alkaline Phosphatase 123 U/L (38-126); Aspartate Aminotransferase 15 IU/L (14-36); Bilirubin Total 0.2 mg/dL (0.2-1.3); Blood Urea Nitrogen 24 mg/dL (7-17); Calcium 7.8 mg/dL (8.4-10.2); Chloride 102 mmol/L (98-107); Estimated Glomerular Filt Rate > 60.0 mL/min (>60); Ethanol (ETOH) < 10 mg/dL; Globulin 2.6 g/dL (1.7-4.1); Glucose 434 mg/dL (70-100); HEMOLYSIS < 15 (0-50); Lactate (Lactic Acid) 0.7 mmol/L (0.7-2.1); Lipase 134 U/L (23-300); Magnesium 1.9 mg/dL (1.6-2.3); Phosphorous 3.6 mg/dL (2.5-4.5); Potassium 3.9 mmol/L (3.4-5.1); Sodium 135 mmol/L (137-145)
[2018-07-13 09:47] LABS: Urine Amphetamines Positive (Negative); Urine Barbiturates Negative (Negative); Urine Benzodiazepines Negative (Negative); Urine Cocaine Negative (Negative); Urine MDMA Negative (Negative); Urine Methadone Negative (Negative); Urine Methamphetamines Negative (Negative); Urine Morphine/Opi cutoff 2000 Negative (Negative); Urine Oxycodone Negative (Negative); Urine Phencyclidine Negative (Negative); Urine Tetrahydrocannabinol Negative (Negative); Urine Tricyclic Antidepressant Negative (Negative)
[2018-07-13 09:55] LABS: Neutrophils Absolute Manual 21070 /uL (3000-5900); Total Cells Counted 100
[2018-07-13 09:56] LABS: Macrocytosis 2+
[2018-07-13 09:58] LABS: Carbon Dioxide < 5 mmol/L (22-32)
[2018-07-13 10:02] LABS: Procalcitonin 0.06 ng/mL (<0.5)
--- NOTE | 2018-07-13 10:02 | PC.NURSE ---
Pt appears mostly asleep. Has verbalized needs on 3 different instants, I need to pee just before placing catheter, removed 1850 cc from bladder after placement of catheter. I want a drink of water Informed of not being able to give anything by mouth at that time. Can I have a warm blanket? All statements were clear and able to be understood by this RN. Immediately drifted back to sleep. Continues to take deep breaths.
[2018-07-13 10:30] LABS: Ketones (Beta-Hydroxybutyrate) 17.47 mmol/L (<0.27)
[2018-07-13] MEDS: SODIUM CHLORIDE 0.9% 1,000 ML 100 ML IV (10:46)
[2018-07-13] MEDS: INSULIN REGULAR, HUMAN 100 UNIT in SODIUM CHLORIDE 0.9% 100 ML 6 ML IV ×2 (11:02→11:41)
[2018-07-13 11:10] LABS: Hemoglobin A1C% w Est Avg Glu > 14.0 % (4.0-6.0)
[2018-07-13] MEDS: SODIUM BICARB IV ×2 (11:36→15:16)
[2018-07-13] MEDS: WATER FOR INJECTION STERILE IV ×2 (11:36→15:16)
--- NOTE | 2018-07-13 11:36 | P.HP_ITS ---
History of Present Illness Date Patient Seen: 07/13/18 Time Patient Seen: 11:31 Chief complaint: Unresponsive, Diabetic Narrative: Most of the history was obtained through medical records and verbal sign-out from emergency department provider, as patient is not responding/ refuses to answer, and no family at bedside. 32-year-old female with past medical history of insulin-dependent diabetes mellitus, substance abuse (including tobacco and methamphetamine) was brought in by ambulance for unresponsiveness. It is reported, that patient's has noted patient to be increasingly lethargic and less to respond over the past few days. He has reported minimal movement out of bed and this regarding her surroundings. Her blood sugars have been consistently high for the past couple of days, as per family. This morning, noticed the patient was having rapid breathing and was completely unresponsive to him, which is when he got concerned and called the ambulance. Once ambulance arrived, they have noted patient to be unresponsive but protecting her airways. Her blood glucose at that time revealed 450, after which 1 L normal saline bolus was given and patient was brought to emergency department. On admission to emergency department, patient's vital signs showed blood pressure 100/48, respirations 20, saturation 100% on room air, and pulse of 110 which decreased to 98 after 2 L IV NS bolus administration. The patient remained minimally responsive, only responding/verbalizing when she needed to go to the bathroom and to painful stimulation. She was noted to have left 3rd hand digit swelling, erythema, and central ulceration with slight drainage. Lab work revealed WBCs 24.5, hemoglobin 14.9, hematocrit 45.3, platelets 420. Sodium 135, potassium 3.9, chloride 102, bicarb less than 5, BUN 24, creatinine 0.8, blood glucose 434. Ketones were 17.47, anion gap 28, pH 6.9. X-ray of the left hand revealed no drainable abscess pocket, but was consistent with soft tissue swelling. Toxicology screen positive for amphetamine. Patient was given 2 L IV fluids, vanc and Zosyn IV, and transferred to ICU for further management of diabetic ketoacidosis and left 3rd digit cellulitis. Patient History Medical History DKA (diabetic ketoacidoses) (Acute) High anion gap metabolic acidosis (Acute) Substance abuse (Acute) Diabetes (Acute) Insulin dependent diabetes mellitus (Acute) Surgical history unknown (Acute) Family & Social History Social History: household members significant other Tobacco & Substance use: Tobacco type cigarettes Smoking Status Current every day smoker alcohol intake former alcohol intake frequency holiday/special occasion Substance Use Type amphetamine use, unclear if injecting Meds Home Medications Medication Instructions Recorded Confirmed Type aspirin 81 mg PO QDAY #0 04/09/17 History cyclobenzaprine 10 mg PO TIDP PRN #0 04/09/17 History ibuprofen 400 mg PO #0 04/09/17 History lisinopril 2.5 mg PO QDAY #0 04/09/17 History fluconazole [Diflucan] 100 mg PO QDAY #5 09/27/17 Rx insulin aspart U-100 [Novolog 0 unit SQ QIDACHS 30 Days #0 09/27/17 Rx Flexpen U-100 Insulin] insulin aspart U-100 [Novolog 10 unit SQ TIDCC 30 Days #0 09/27/17 Rx Flexpen U-100 Insulin] insulin glargine [Lantus U-] 30 unit SUBCUT BID #10 ml 04/22/18 Rx Allergies Allergy/AdvReac Type Severity Reaction Status Date / Time No Known Drug Allergies Allergy Verified 04/21/18 15:21 Review of Systems Review of Systems unobtainable due to mental status Exam Vital Signs (past 8 hours): - 07/13/18 09:05 07/13/18 09:42 07/13/18 10:07 Temperature 96.6 F L 96.6 F L Pulse Rate 104 H 98 H 97 H Respiratory Rate 26 H 18 16 Blood Pressure 109/81 109/81 Blood Pressure [Left Arm] 116/79 102/76 Pulse Oximetry 100 100 100 07/13/18 10:18 07/13/18 11:00 Temperature Pulse Rate 96 H 98 H Respiratory Rate 17 20 Blood Pressure Blood Pressure [Left Arm] 100/56 L 100/48 L Pulse Oximetry 100 100 Oxygen Delivery Method Room Air Narrative Exam Narrative: General: Patient is only responding to painful stimuli or when she needs to use the toilet HEENT: Dry mucous membranes, PERRLA bilaterally Neck: Supple, no LAD or JVD CV: Regular rate rhythm, no murmurs or gallops Respiratory: Severe tachypnea, clear to auscultation bilaterally, no wheezing or crackles GI: Concave abdomen, positive bowel sounds in all 4 quadrants, nontender to palpation, no organomegaly Extremities: Left hand 3rd digit erythema and swelling with central 5 mm ulceration, not currently draining Skin: Multiple injection wounds on hands bilaterally, noninflamed or infectious Musculoskeletal: Moves all extremities Neuro: Unable to assess, however patient responds to painful stimuli Psych: Patient is unresponsive, on unless she wishes to do something Objective Labs Result Diagrams: 07/13/18 09:09 07/13/18 09:10 Labs: Laboratory Results - last 24 hr 07/13/18 07/13/18 07/13/18 09:09 09:09 09:10 WBC 24.5 H RBC 4.43 Hgb 14.9 Hct 45.3 MCV 102.3 H MCH 33.6 MCHC 32.9 RDW 14.1 Plt Count 420 H Neut % (Auto) Not Reportable Lymph % (Auto) Not Reportable [place] % (Auto) Not Reportable Eos % (Auto) Not Reportable Baso % (Auto) Not Reportable Total Counted 100 Seg Neutrophils % 57.0 Band Neutrophils % 29.0 H Lymphocytes % (Manual) 7.0 L Monocytes % (Manual) 6.0 Basophils % (Manual) 1.0 Neutrophils # (Manual) 29807 H RBC Morphology Not Reportable Macrocytosis 2+ H ABG pH 6.93 L* ABG pCO2 7.4 L* ABG pO2 149 H ABG HCO3 2 L ABG Total CO2 < 5 L ABG O2 Saturation 97 ABG Base Excess < -30.0 L FiO2 0.21 Sodium 135 L Potassium 3.9 Chloride 102 Carbon Dioxide < 5 L* BUN 24 H Creatinine 0.80 Estimated GFR > 60.0 BUN/Creatinine Ratio 30.0 H Glucose 434 H Hemoglobin A1c Lactate Calcium 7.8 L Phosphorus 3.6 Magnesium 1.9 Total Bilirubin 0.2 AST 15 ALT 23 Alkaline Phosphatase 123 Total Protein 6.0 L Albumin 3.4 L Globulin 2.6 Albumin/Globulin Ratio 1.3 Lipase 134 Procalcitonin Urine Opiates Screen Ur Oxycodone Screen Urine Methadone Screen Ur Barbiturates Screen U Tricyclic Antidepress Ur Phencyclidine Scrn Ur Amphetamines Screen U Methamphetamines Scrn Ur MDMA Scrn (Ecstasy) U Benzodiazepines Scrn Urine Cocaine Screen U Marijuana (THC) Screen Ethyl Alcohol < 10 Ketones 17.47 H 07/13/18 07/13/18 07/13/18 09:10 09:10 09:10 WBC RBC Hgb Hct MCV MCH MCHC RDW Plt Count Neut % (Auto) Lymph % (Auto) [place] % (Auto) Eos % (Auto) Baso % (Auto) Total Counted Seg Neutrophils % Band Neutrophils % Lymphocytes % (Manual) Monocytes % (Manual) Basophils % (Manual) Neutrophils # (Manual) RBC Morphology Macrocytosis ABG pH ABG pCO2 ABG pO2 ABG HCO3 ABG Total CO2 ABG O2 Saturation ABG Base Excess FiO2 Sodium Potassium Chloride Carbon Dioxide BUN Creatinine Estimated GFR BUN/Creatinine Ratio Glucose Hemoglobin A1c > 14.0 H Lactate 0.7 Calcium Phosphorus Magnesium Total Bilirubin AST ALT Alkaline Phosphatase Total Protein Albumin Globulin Albumin/Globulin Ratio Lipase Procalcitonin 0.06 Urine Opiates Screen Ur Oxycodone Screen Urine Methadone Screen Ur Barbiturates Screen U Tricyclic Antidepress Ur Phencyclidine Scrn Ur Amphetamines Screen U Methamphetamines Scrn Ur MDMA Scrn (Ecstasy) U Benzodiazepines Scrn Urine Cocaine Screen U Marijuana (THC) Screen Ethyl Alcohol Ketones 07/13/18 09:25 WBC RBC Hgb Hct MCV MCH MCHC RDW Plt Count Neut % (Auto) Lymph % (Auto) [place] % (Auto) Eos % (Auto) Baso % (Auto) Total Counted Seg Neutrophils % Band Neutrophils % Lymphocytes % (Manual) Monocytes % (Manual) Basophils % (Manual) Neutrophils # (Manual) RBC Morphology Macrocytosis ABG pH ABG pCO2 ABG pO2 ABG HCO3 ABG Total CO2 ABG O2 Saturation ABG Base Excess FiO2 Sodium Potassium Chloride Carbon Dioxide BUN Creatinine Estimated GFR BUN/Creatinine Ratio Glucose Hemoglobin A1c Lactate Calcium Phosphorus Magnesium Total Bilirubin AST ALT Alkaline Phosphatase Total Protein Albumin Globulin Albumin/Globulin Ratio Lipase Procalcitonin Urine Opiates Screen Negative Ur Oxycodone Screen Negative Urine Methadone Screen Negative Ur Barbiturates Screen Negative U Tricyclic Antidepress Negative Ur Phencyclidine Scrn Negative Ur Amphetamines Screen Positive H U Methamphetamines Scrn Negative Ur MDMA Scrn (Ecstasy) Negative U Benzodiazepines Scrn Negative Urine Cocaine Screen Negative U Marijuana (THC) Screen Negative Ethyl Alcohol Ketones Assessment & Plan Plan: Assessment/Plan Narrative: 1. Diabetic ketoacidosis -with high anion gap metabolic acidosis -pH 6.9, bicarb<5, anion gap 28, ketones 17, blood glucose 434 -patient received 2 L NS boluses in the ED, will start on bicarb drip 150 mEq at 150 cc/hour -will initiate insulin drip as per DKA protocol -blood glucose checks q.1 hour, BMP checks q.4 hours -replete electrolytes as needed -monitor mental status with low threshold for intubation 2. Left 3rd digit cellulitis with central ulceration -WBC 24.5, lactic acid negative, patient is hemodynamically stable -left hand x-ray done in ED which showed soft tissue swelling but no suspicion for osteomyelitis or drainable abscess pocket -patient started on vancomycin and Zosyn IV in the emergency department, will continue at this time -blood cultures pending, wound culture if possible will collect 3. Substance abuse -toxicology screen positive for amphetamine -monitor for withdrawals -nicotine patch for tobacco use Will place patient as full code status at this time, as no family at bedside to provide history and patient is not responsive 60 min spent evaluating and managing this patient
[2018-07-13 12:30] LABS: BUN Creatinine Ratio 31.3 (6-22); Blood Urea Nitrogen 25 mg/dL (7-17); Calcium 7.5 mg/dL (8.4-10.2); Chloride 103 mmol/L (98-107); Estimated Glomerular Filt Rate > 60.0 mL/min (>60); Glucose 429 mg/dL (70-100); HEMOLYSIS 17 (0-50); Sodium 136 mmol/L (137-145)
[2018-07-13] MEDS: POTASSIUM CHLORIDE 40 MEQ in SODIUM CHLORIDE 0.9% 500 ML 130 ML IV (12:33)
[2018-07-13 12:34] LABS: Carbon Dioxide < 5 mmol/L (22-32)
[2018-07-13] MEDS: INSULIN REGULAR 100 UNIT/ML 3 ML VIAL IV (12:34)
[2018-07-13 12:37] LABS: Hemoglobin A1C% w Est Avg Glu > 14.0 % (4.0-6.0)
--- NOTE | 2018-07-13 14:23 | PC.NURSE ---
Day Shift Note Arrived to room 102 from ER via stretcher at 1135. Transferred to bed via slider board, somnolent, not responding to verbal or tactile stimuli. Does makes needs known intermittently stating I need to use the bedpan and I'm cold, can I have a warm blanket. Insulin gtt at 6 un/hr on arrival with instructions to use DKA protocol to titrate. Bicarb infusing at 150 ml/hr per MD order. ST in the low 100s, RA with sats 98-100%. Area of yellow slough to third left finger with surrounding erythema (marked by ER), culture taken and sent to lab. Carbone catheter in place and draining clear yellow urine. Clothing in room closet, call light within reach. Bed alarm on.
[2018-07-13 15:29] LABS: BUN Creatinine Ratio 35.7 (6-22); Blood Urea Nitrogen 25 mg/dL (7-17); Calcium 7.3 mg/dL (8.4-10.2); Chloride 105 mmol/L (98-107); Estimated Glomerular Filt Rate > 60.0 mL/min (>60); Glucose 284 mg/dL (70-100); HEMOLYSIS < 15 (0-50); Potassium 3.1 mmol/L (3.4-5.1); Sodium 138 mmol/L (137-145)
[2018-07-13 15:34] LABS: Carbon Dioxide 9 mmol/L (22-32)
[2018-07-13] MEDS: SODIUM BICARB 8.4% VIAL 150 MEQ in DEXTROSE 5% WATER 1,000 ML IV (16:51)
[2018-07-13] MEDS: POTASSIUM CHLORIDE 60 MEQ in SODIUM CHLORIDE 0.9% 500 ML 88.333 ML IV (16:58)
--- NOTE | 2018-07-13 19:26 | PC.NURSE ---
Addendum entered by Dolly Arana R.N. 07/13/18 22:06: Pt wakes easily now. Asking for water. Original Note: Addendum entered by Dolly Arana R.N. 07/13/18 22:06: Called DILLON Brantley to report ABG results. Asked for IVF change and DC of bicarb gtt. Original Note: kassi note pt responding only to painful stimuli, but also randomly rolls on her side, turns her head. fingers are all red with hardened skin. Left middle finger has purulent scab with associated erythema up hand and into neighboring fingers. Pt now more alert, coughing out yellow phlegm, opening eyes briefly.
[2018-07-13 20:05] LABS: Blood Urea Nitrogen 22 mg/dL (7-17); Calcium 7.1 mg/dL (8.4-10.2); Carbon Dioxide 19 mmol/L (22-32); Chloride 105 mmol/L (98-107); Estimated Glomerular Filt Rate > 60.0 mL/min (>60); Glucose 186 mg/dL (70-100); HEMOLYSIS 18 (0-50); Potassium 3.3 mmol/L (3.4-5.1); Sodium 139 mmol/L (137-145)
[2018-07-13 21:41] LABS: HCO3 ABG 21 mmol/L (23-27); Oxygen Saturation ABG 96 % (95-100); PO2 ABG 82 mmHg (80-105); TCO2 ABG 22 mmol/L (23-27); pH ABG 7.43 (7.35-7.45)
[2018-07-13 21:42] LABS: Fractionated Inspired Oxygen 21
[2018-07-13] MEDS: DEXTROSE 5%-0.45% NS 1,000 ML 70.8 ML IV (22:38)
[2018-07-13 23:44] LABS: Blood Urea Nitrogen 20 mg/dL (7-17); Carbon Dioxide 23 mmol/L (22-32); Chloride 102 mmol/L (98-107); Estimated Glomerular Filt Rate > 60.0 mL/min (>60); Glucose 154 mg/dL (70-100); HEMOLYSIS < 15 (0-50); Potassium 3.4 mmol/L (3.4-5.1); Sodium 136 mmol/L (137-145)
[2018-07-13 23:45] LABS: Magnesium 1.4 mg/dL (1.6-2.3)
[2018-07-14] VITALS (11 sets, daily range): BP systolic 86–106; BP diastolic 50–64; PULSE 97–110; RESP 10–20; TEMP 37–37.3; O2SAT 94–97
[2018-07-14 00:01] LABS: Phosphorous 1.2 mg/dL (2.5-4.5)
[2018-07-14] MEDS: DEXTROSE 10 % IN WATER 1,000 ML 47.2 ML IV ×2 (00:30→06:10)
[2018-07-14] MEDS: POTASSIUM CHLORIDE 20 MEQ TAB 60 MEQ PO (01:13)
[2018-07-14] MEDS: MAGNESIUM SULFATE 2 GM/50 ML PIGGYBACK IV (01:13)
[2018-07-14] MEDS: PIPERACILLIN-TAZO 3.375 GM/50 ML FROZ.PIGGY IV ×4 (02:55→22:03)
[2018-07-14] MEDS: DEXTROSE 5%-0.45% NS 1,000 ML 71 ML IV (03:08)
[2018-07-14 05:21] LABS: Alanine Aminotransferase 25 IU/L (9-52); Albumin 2.3 g/dL (3.5-5.0); Alkaline Phosphatase 78 U/L (38-126); Aspartate Aminotransferase 12 IU/L (14-36); Bilirubin Total 0.2 mg/dL (0.2-1.3); Blood Urea Nitrogen 20 mg/dL (7-17); Calcium 7.3 mg/dL (8.4-10.2); Carbon Dioxide 24 mmol/L (22-32); Chloride 103 mmol/L (98-107); Estimated Glomerular Filt Rate > 60.0 mL/min (>60); Globulin 2.3 g/dL (1.7-4.1); Glucose 127 mg/dL (70-100); HEMOLYSIS 17 (0-50); Potassium 3.8 mmol/L (3.4-5.1); Sodium 133 mmol/L (137-145); Total Protein 4.6 g/dL (6.3-8.2)
[2018-07-14 05:38] LABS: Phosphorous 1.2 mg/dL (2.5-4.5)
--- NOTE | 2018-07-14 06:37 | PM.EVENT ---
07/14/2018 at 6:37 a.m. JAYSON callign w/ am labs Anion gap now closed. Will stop insulin GTT and IVF. Transition patient to her home insulin regimen of Lantus 30 units b.i.d.. Okay to resume diabetic diet Replete potassium with 40 mEq oral KCl
[2018-07-14] MEDS: INSULIN GLARGINE 100 UNIT/ML 3ML PEN 30 UNIT SUBCUT (06:54)
[2018-07-14 07:36] LABS: Add Manual Diff / Slide Review NO; Basophils Percent Auto 0.5 % (0-2); Eosinophils Percent Auto 0.6 % (2-4); Hematocrit 35.1 % (36-46); Hemoglobin 12.3 g/dL (12.0-16.0); Lymphocytes Percent Auto 10.1 % (25-40); Mean Corpuscular HGB Conc 35.2 % (30-36); Mean Corpuscular Hemoglobin 33.6 PG (26-34); Mean Corpuscular Volume 95.4 fL (80-100); Monocytes Percent Auto 3.7 % (3-14); Neutrophils Absolute Auto 10200 /uL (3000-5900); Neutrophils Percent Auto 85.1 % (50-75); Platelet Count 272 X10^3/uL (150-400); Red Blood Cell Count 3.68 X10^6/uL (4.0-5.2); Red Cell Distribution Width 13.9 % (11.6-14.8)
--- NOTE | 2018-07-14 07:57 | P.PN_ITS ---
Subjective Date Patient Seen: 07/14/18 Time Patient Seen: 07:50 Interval history: Follow-up in DKA and right left upper extremity 3rd digit cellulitis. Patient seen at bedside. She is more awake today, however very reluctant to answer questions. She is able to tolerate p.o. and desires food. She was transitioned to subcutaneous insulin earlier this morning. Patient is, however , very weak and continues to sleep most of the time. Unchanged in left upper extremity 3rd digit swelling. Exam Vital Signs (past 8 hours): - 07/14/18 00:00 07/14/18 01:00 07/14/18 02:00 Temperature 98.8 F 98.9 F Pulse Rate 109 H 107 H 105 H Respiratory Rate 16 10 L 15 Blood Pressure 96/53 L 95/58 L 106/62 Pulse Oximetry 96 95 97 07/14/18 04:00 07/14/18 05:00 07/14/18 06:00 Temperature 98.9 F Pulse Rate 102 H 100 H 100 H Respiratory Rate 13 15 12 Blood Pressure 92/53 L 96/50 L 96/56 L Pulse Oximetry 94 96 96 07/14/18 07:00 Temperature Pulse Rate 104 H Respiratory Rate 16 Blood Pressure 92/56 L Pulse Oximetry 95 Oxygen Delivery Method Room Air Oxygen Flow Rate 0 Narrative Exam Narrative: General: AAO x3, no acute distress HEENT: Dry mucous membranes, PERRLA bilaterally Neck: Supple, no LAD or JVD CV: Regular rate rhythm, no murmurs or gallops Respiratory: clear to auscultation bilaterally, no wheezing or crackles GI: Concave abdomen, positive bowel sounds in all 4 quadrants, nontender to palpation, no organomegaly Extremities: Left hand 3rd digit erythema and swelling with central 5 mm ulceration, not currently draining Skin: Multiple scabbed wounds on hands bilaterally, non inflamed or infectious Musculoskeletal: Moves all extremities Neuro: No focal deficits Psych: Patient reluctant to respond to questions, likes to be left alone Objective Labs Result Diagrams: 07/14/18 07:30 07/14/18 05:00 Labs: Laboratory Results - last 24 hr 07/13/18 07/13/18 07/13/18 09:09 09:09 09:10 WBC 24.5 H RBC 4.43 Hgb 14.9 Hct 45.3 MCV 102.3 H MCH 33.6 MCHC 32.9 RDW 14.1 Plt Count 420 H Neut % (Auto) Not Reportable Lymph % (Auto) Not Reportable [place] % (Auto) Not Reportable Eos % (Auto) Not Reportable Baso % (Auto) Not Reportable Neut # (Auto) Total Counted 100 Seg Neutrophils % 57.0 Band Neutrophils % 29.0 H Lymphocytes % (Manual) 7.0 L Monocytes % (Manual) 6.0 Basophils % (Manual) 1.0 Neutrophils # (Manual) 04991 H RBC Morphology Not Reportable Macrocytosis 2+ H ABG pH 6.93 L* ABG pCO2 7.4 L* ABG pO2 149 H ABG HCO3 2 L ABG Total CO2 < 5 L ABG O2 Saturation 97 ABG Base Excess < -30.0 L FiO2 0.21 Sodium 135 L Potassium 3.9 Chloride 102 Carbon Dioxide < 5 L* BUN 24 H Creatinine 0.80 Estimated GFR > 60.0 BUN/Creatinine Ratio 30.0 H Glucose 434 H Hemoglobin A1c Lactate Calcium 7.8 L Phosphorus 3.6 Magnesium 1.9 Total Bilirubin 0.2 AST 15 ALT 23 Alkaline Phosphatase 123 Total Protein 6.0 L Albumin 3.4 L Globulin 2.6 Albumin/Globulin Ratio 1.3 Lipase 134 Procalcitonin Nasal Screen MRSA (PCR) Urine Opiates Screen Ur Oxycodone Screen Urine Methadone Screen Ur Barbiturates Screen U Tricyclic Antidepress Ur Phencyclidine Scrn Ur Amphetamines Screen U Methamphetamines Scrn Ur MDMA Scrn (Ecstasy) U Benzodiazepines Scrn Urine Cocaine Screen U Marijuana (THC) Screen Ethyl Alcohol < 10 Ketones 17.47 H 07/13/18 07/13/18 07/13/18 09:10 09:10 09:10 WBC RBC Hgb Hct MCV MCH MCHC RDW Plt Count Neut % (Auto) Lymph % (Auto) [place] % (Auto) Eos % (Auto) Baso % (Auto) Neut # (Auto) Total Counted Seg Neutrophils % Band Neutrophils % Lymphocytes % (Manual) Monocytes % (Manual) Basophils % (Manual) Neutrophils # (Manual) RBC Morphology Macrocytosis ABG pH ABG pCO2 ABG pO2 ABG HCO3 ABG Total CO2 ABG O2 Saturation ABG Base Excess FiO2 Sodium Potassium Chloride Carbon Dioxide BUN Creatinine Estimated GFR BUN/Creatinine Ratio Glucose Hemoglobin A1c > 14.0 H Lactate 0.7 Calcium Phosphorus Magnesium Total Bilirubin AST ALT Alkaline Phosphatase Total Protein Albumin Globulin Albumin/Globulin Ratio Lipase Procalcitonin 0.06 Nasal Screen MRSA (PCR) Urine Opiates Screen Ur Oxycodone Screen Urine Methadone Screen Ur Barbiturates Screen U Tricyclic Antidepress Ur Phencyclidine Scrn Ur Amphetamines Screen U Methamphetamines Scrn Ur MDMA Scrn (Ecstasy) U Benzodiazepines Scrn Urine Cocaine Screen U Marijuana (THC) Screen Ethyl Alcohol Ketones 07/13/18 07/13/18 07/13/18 09:25 11:35 12:15 WBC RBC Hgb Hct MCV MCH MCHC RDW Plt Count Neut % (Auto) Lymph % (Auto) [place] % (Auto) Eos % (Auto) Baso % (Auto) Neut # (Auto) Total Counted Seg Neutrophils % Band Neutrophils % Lymphocytes % (Manual) Monocytes % (Manual) Basophils % (Manual) Neutrophils # (Manual) RBC Morphology Macrocytosis ABG pH ABG pCO2 ABG pO2 ABG HCO3 ABG Total CO2 ABG O2 Saturation ABG Base Excess FiO2 Sodium 136 L Potassium 3.0 L Chloride 103 Carbon Dioxide < 5 L* BUN 25 H Creatinine 0.80 Estimated GFR > 60.0 BUN/Creatinine Ratio 31.3 H Glucose 429 H Hemoglobin A1c Lactate Calcium 7.5 L Phosphorus Magnesium Total Bilirubin AST ALT Alkaline Phosphatase Total Protein Albumin Globulin Albumin/Globulin Ratio Lipase Procalcitonin Nasal Screen MRSA (PCR) Negative for mrsa Urine Opiates Screen Negative Ur Oxycodone Screen Negative Urine Methadone Screen Negative Ur Barbiturates Screen Negative U Tricyclic Antidepress Negative Ur Phencyclidine Scrn Negative Ur Amphetamines Screen Positive H U Methamphetamines Scrn Negative Ur MDMA Scrn (Ecstasy) Negative U Benzodiazepines Scrn Negative Urine Cocaine Screen Negative U Marijuana (THC) Screen Negative Ethyl Alcohol Ketones 07/13/18 07/13/18 07/13/18 12:15 15:00 19:20 WBC RBC Hgb Hct MCV MCH MCHC RDW Plt Count Neut % (Auto) Lymph % (Auto) [place] % (Auto) Eos % (Auto) Baso % (Auto) Neut # (Auto) Total Counted Seg Neutrophils % Band Neutrophils % Lymphocytes % (Manual) Monocytes % (Manual) Basophils % (Manual) Neutrophils # (Manual) RBC Morphology Macrocytosis ABG pH ABG pCO2 ABG pO2 ABG HCO3 ABG Total CO2 ABG O2 Saturation ABG Base Excess FiO2 Sodium 138 139 Potassium 3.1 L 3.3 L Chloride 105 105 Carbon Dioxide 9 L* 19 L BUN 25 H 22 H Creatinine 0.70 0.50 L Estimated GFR > 60.0 > 60.0 BUN/Creatinine Ratio 35.7 H 44.0 H Glucose 284 H D 186 H Hemoglobin A1c > 14.0 H Lactate Calcium 7.3 L 7.1 L Phosphorus Magnesium Total Bilirubin AST ALT Alkaline Phosphatase Total Protein Albumin Globulin Albumin/Globulin Ratio Lipase Procalcitonin Nasal Screen MRSA (PCR) Urine Opiates Screen Ur Oxycodone Screen Urine Methadone Screen Ur Barbiturates Screen U Tricyclic Antidepress Ur Phencyclidine Scrn Ur Amphetamines Screen U Methamphetamines Scrn Ur MDMA Scrn (Ecstasy) U Benzodiazepines Scrn Urine Cocaine Screen U Marijuana (THC) Screen Ethyl Alcohol Ketones 07/13/18 07/13/18 07/13/18 21:30 23:20 23:20 WBC RBC Hgb Hct MCV MCH MCHC RDW Plt Count Neut % (Auto) Lymph % (Auto) [place] % (Auto) Eos % (Auto) Baso % (Auto) Neut # (Auto) Total Counted Seg Neutrophils % Band Neutrophils % Lymphocytes % (Manual) Monocytes % (Manual) Basophils % (Manual) Neutrophils # (Manual) RBC Morphology Macrocytosis ABG pH 7.43 ABG pCO2 31.0 L ABG pO2 82 ABG HCO3 21 L ABG Total CO2 22 L ABG O2 Saturation 96 ABG Base Excess -4.0 L FiO2 21 Sodium 136 L Potassium 3.4 Chloride 102 Carbon Dioxide 23 BUN 20 H Creatinine 0.40 L Estimated GFR > 60.0 BUN/Creatinine Ratio 50.0 H Glucose 154 H Hemoglobin A1c Lactate Calcium 7.0 L Phosphorus 1.2 L D Magnesium 1.4 L Total Bilirubin AST ALT Alkaline Phosphatase Total Protein Albumin Globulin Albumin/Globulin Ratio Lipase Procalcitonin Nasal Screen MRSA (PCR) Urine Opiates Screen Ur Oxycodone Screen Urine Methadone Screen Ur Barbiturates Screen U Tricyclic Antidepress Ur Phencyclidine Scrn Ur Amphetamines Screen U Methamphetamines Scrn Ur MDMA Scrn (Ecstasy) U Benzodiazepines Scrn Urine Cocaine Screen U Marijuana (THC) Screen Ethyl Alcohol Ketones 07/14/18 07/14/18 07/14/18 05:00 05:00 05:00 WBC RBC Hgb Hct MCV MCH MCHC RDW Plt Count Neut % (Auto) Lymph % (Auto) [place] % (Auto) Eos % (Auto) Baso % (Auto) Neut # (Auto) Total Counted Seg Neutrophils % Band Neutrophils % Lymphocytes % (Manual) Monocytes % (Manual) Basophils % (Manual) Neutrophils # (Manual) RBC Morphology Macrocytosis ABG pH ABG pCO2 ABG pO2 ABG HCO3 ABG Total CO2 ABG O2 Saturation ABG Base Excess FiO2 Sodium 133 L Potassium 3.8 Chloride 103 Carbon Dioxide 24 BUN 20 H Creatinine 0.40 L Estimated GFR > 60.0 BUN/Creatinine Ratio 50.0 H Glucose 127 H Hemoglobin A1c Lactate Calcium 7.3 L Phosphorus 1.2 L Magnesium 2.0 Total Bilirubin 0.2 AST 12 L ALT 25 Alkaline Phosphatase 78 Total Protein 4.6 L Albumin 2.3 L Globulin 2.3 Albumin/Globulin Ratio 1.0 Lipase Procalcitonin Nasal Screen MRSA (PCR) Urine Opiates Screen Ur Oxycodone Screen Urine Methadone Screen Ur Barbiturates Screen U Tricyclic Antidepress Ur Phencyclidine Scrn Ur Amphetamines Screen U Methamphetamines Scrn Ur MDMA Scrn (Ecstasy) U Benzodiazepines Scrn Urine Cocaine Screen U Marijuana (THC) Screen Ethyl Alcohol Ketones 07/14/18 07:30 WBC 12.0 H D RBC 3.68 L Hgb 12.3 Hct 35.1 L MCV 95.4 D MCH 33.6 MCHC 35.2 RDW 13.9 Plt Count 272 Neut % (Auto) 85.1 H Lymph % (Auto) 10.1 L [place] % (Auto) 3.7 Eos % (Auto) 0.6 L Baso % (Auto) 0.5 Neut # (Auto) 18507 H Total Counted Seg Neutrophils % Band Neutrophils % Lymphocytes % (Manual) Monocytes % (Manual) Basophils % (Manual) Neutrophils # (Manual) RBC Morphology Macrocytosis ABG pH ABG pCO2 ABG pO2 ABG HCO3 ABG Total CO2 ABG O2 Saturation ABG Base Excess FiO2 Sodium Potassium Chloride Carbon Dioxide BUN Creatinine Estimated GFR BUN/Creatinine Ratio Glucose Hemoglobin A1c Lactate Calcium Phosphorus Magnesium Total Bilirubin AST ALT Alkaline Phosphatase Total Protein Albumin Globulin Albumin/Globulin Ratio Lipase Procalcitonin Nasal Screen MRSA (PCR) Urine Opiates Screen Ur Oxycodone Screen Urine Methadone Screen Ur Barbiturates Screen U Tricyclic Antidepress Ur Phencyclidine Scrn Ur Amphetamines Screen U Methamphetamines Scrn Ur MDMA Scrn (Ecstasy) U Benzodiazepines Scrn Urine Cocaine Screen U Marijuana (THC) Screen Ethyl Alcohol Ketones Assessment & Plan Plan: Assessment/Plan Narrative: 1. Diabetic ketoacidosis -gap has now closed, 7 -bicarb this morning is 24 -patient is able to tolerate p.o., and is transitioned to home regimen insulin -continue Lantus 25 units b.i.d. (this is while patient states she takes at home now) and medium dose correctional scale -frequent Accu-Cheks, hypoglycemia protocol 2. Left 3rd digit cellulitis with central ulceration -stable, not improving yet -WBC 24.5->12.0, lactic acid negative, patient is hemodynamically stable -left hand x-ray done in ED which showed soft tissue swelling but no suspicion for osteomyelitis or drainable abscess pocket -continue vancomycin and Zosyn IV until blood and wound cultures are back 3. Substance abuse -toxicology screen positive for amphetamine -monitor for withdrawals -nicotine patch for tobacco use 4. Deconditioning -patient seems to be weak, sleeping majority of the time, and cachectic -PT/OT on board, dietitian consult on board Full code Quality VTE Deep Vein Thrombosis/Pulmonary Embolism Present on Admission: No
[2018-07-14 08:09] LABS: Blood Urea Nitrogen 18 mg/dL (7-17); Calcium 7.5 mg/dL (8.4-10.2); Carbon Dioxide 26 mmol/L (22-32); Chloride 102 mmol/L (98-107); Estimated Glomerular Filt Rate > 60.0 mL/min (>60); Glucose 116 mg/dL (70-100); HEMOLYSIS < 15 (0-50); Potassium 3.6 mmol/L (3.4-5.1); Sodium 135 mmol/L (137-145)
[2018-07-14] MEDS: ENOXAPARIN 40 MG/0.4 ML SYRINGE SUBCUT (08:33)
--- NOTE | 2018-07-14 09:05 | PT.IIE ---
Current Diagnoses Type 2 diabetes mellitus with ketoacidosis without coma (07/13/18) Medical History (Last Updated 07/13/18 @ 11:55 by Leslie Guzman MD) DKA (diabetic ketoacidoses) (Acute) High anion gap metabolic acidosis (Acute) Substance abuse (Acute) Diabetes (Acute) Insulin dependent diabetes mellitus (Acute) Surgical history unknown (Acute) Physical Therapy Inpatient Evaluation/Re-Eval M1 PT/OT-IP Prior Functional Status Start: 07/14/18 14:12 Freq: NEEDED Status: Active Protocol: Document 07/14/18 09:05 [facility] (Rec: 07/14/18 14:33 [facility] [id number]) Medical Review Prior Functional Status Medical History Reviewed Yes Mobility and Gait indep. gait without device Activities of Daily Living and IADL's indep. ADLs Social History Household Members significant other Living Arrangements House Additional Social History Comment pt unable to give background information regarding her prior living condition at this time. Pt presented to ER unresponsive, blood glucose 450. M2 PT-IP Current Condition Start: 07/14/18 14:12 Freq: NEEDED Status: Active Protocol: Document 07/14/18 09:05 [facility] (Rec: 07/14/18 14:33 [facility] [id number]) Physical Therapy Current Condition Current Condition Evaluation Date 07/14/18 Treatment Diagnosis DKA, LUE 3rd digit cellulitis, impaired activity tolerance M3 PT-IP Subjective Start: 07/14/18 14:12 Freq: NEEDED Status: Active Protocol: Document 07/14/18 09:05 [facility] (Rec: 07/14/18 14:33 [facility] [id number]) Subjective Physical Therapy Visit Type Type Initial Evaluation Visit Start Time 08:40 Visit Stop Time 09:05 Total Visit Minutes 25 Number of BIODIESEL OPERATIONS MANAGER Visits 0 Physical Therapy Visit Comments Patient Comments pt agreeable to get up, answers some questions with Yes/No responses. Patient Goals unable to state a goal at this time. M4 PT-IP Mobility and Gait Start: 07/14/18 14:12 Freq: NEEDED Status: Active Protocol: Document 07/14/18 09:05 [facility] (Rec: 07/14/18 14:33 [facility] [id number]) PT-Bed Mobility Assessment Supine to Sit Supine to Sit Minimal Assistance Scooting Scooting to Edge of Bed Standby Assistance PT-Transfer Assessment Sit to and From Stand Sit to and from Stand Standby Assistance Equipment Transfer Assistive Device Gait Belt Transfers Transfer Destination Chair Transfer Technique Stand Step Pivot Transfer Ability Level of Assist Standby Assistance Comments Mobility Comments Slow pacing with activity, pt still very lethargic. PT-Balance Assessment Sitting Balance and Reactions Static Sitting Balance Ability Good Dynamic Sitting Balance Ability Good Standing Balance and Reactions Static Standing Balance Ability Fair Dynamic Standing Balance Ability Fair Device Used none M5 PT-IP Objective Assessments Start: 07/14/18 14:12 Freq: NEEDED Status: Active Protocol: Document 07/14/18 09:05 [facility] (Rec: 07/14/18 14:33 [facility] [id number]) Orientation Orientation/Cognition Level of Alertness Confusional State Safety Awareness Decreased Safety Awareness Strength Lower Extremity Strength Assessment Bilaterally Impaired Hip flexion 4/5 B Knee extension 4/5 B, flexion 4/5 B Coordination Assessment Assessment Coordination Comments unable to test due to impaired cognition Sensation Assessment Comments Sensation Comments unable to test due to impaired cognition M6 PT-IP Treatment Start: 07/14/18 14:12 Freq: NEEDED Status: Active Protocol: Document 07/14/18 09:05 [facility] (Rec: 07/14/18 14:33 [facility] [id number]) Physical Therapy Treatment Education Education Provided Safety M7 PT-IP Assessment and Plan Start: 07/14/18 14:12 Freq: NEEDED Status: Active Protocol: Document 07/14/18 09:05 [facility] (Rec: 07/14/18 14:33 [facility] [id number]) PT Summary Assessment and Plan Potential Rehabilitation Potential Good Status of Condition at Evaluation Evolving Summary Impairments Strength Balance Cognition Transfers Gait Activity Tolerance Assessment Summary Pt overall is very lethargic, able to answer some questions but just yes/no answers only. She was reluctant to answer any questions about her living situation. Pt is not safe to mobilize beyond short transfer steps this a.m. due to impaired alertness. Expect pt to be able to d/c home when medically stable given her age and prior level of function. Goals Bed Mobility Goal Independent Transfer Goal Independent Gait Goal Independent Gait Distance 150 Days to Meet Goals 3 Frequency of Treatment Frequency Of Treatment Twice a Day Treatment Plan Physical Therapy Treatment Plan Bed Mobility Training Transfer Training Gait Training Therapeutic Exercise Balance Retraining Recommendations To Nursing Amount of Assist Needed 1 Person Assist Discharge Recommendations PT Discharge Recommendations Home
--- NOTE | 2018-07-14 14:05 | PT.IPTN ---
Current Diagnoses Type 2 diabetes mellitus with ketoacidosis without coma (07/13/18) Physical Therapy Treatment Note M2 PT-IP Current Condition Start: 07/14/18 14:12 Freq: NEEDED Status: Active Protocol: Document 07/14/18 09:05 [facility] (Rec: 07/14/18 14:33 [facility] [id number]) Physical Therapy Current Condition Current Condition Evaluation Date 07/14/18 Treatment Diagnosis DKA, LUE 3rd digit cellulitis, impaired activity tolerance M3 PT-IP Subjective Start: 07/14/18 14:12 Freq: NEEDED Status: Active Protocol: Document 07/14/18 14:05 [facility] (Rec: 07/14/18 14:34 [facility] [id number]) Subjective Physical Therapy Visit Type Type Cancellation Notes pt agitated at this time, not wanting to participate in PT. Will attempt tomorrow. Goals Bed Mobility Goal Independent Transfer Goal Independent Gait Goal Independent Gait Distance 150 Days to Meet Goals 3 Frequency of Treatment Frequency Of Treatment Twice a Day Treatment Plan Physical Therapy Treatment Plan Bed Mobility Training Transfer Training Gait Training Therapeutic Exercise Balance Retraining Recommendations To Nursing Amount of Assist Needed 1 Person Assist Discharge Recommendations PT Discharge Recommendations Home
--- NOTE | 2018-07-14 16:00 | CM.SWNOTE ---
EDOUARD Consult request. Tox screen positive for Amphetamines. H/o cellulitis, see prior notes. track mata on arms noted by ICU nurse. Unable to complete assessment today. Per RN, pt increasingly agitated and cussing at staff. PT has assessed and pt not very alert or awake today, very drowsy. There might have been some functional improvement by the end of the day according to ICU staff. SHEEP FARMER team will follow closely and plan to assess pt when more alert, if she remains here. FREDIS
[2018-07-14] MEDS: INSULIN ASPART 100 UNIT/ML INSULN PEN SUBCUT ×2 (17:49→22:03)
--- NOTE | 2018-07-14 18:53 | PC.NURSE ---
kassi note pt called for assist to bathroom. Gait is unsteady. Pt has sullen attitude. Are you both going to package dye stand loader here?, said Pt, as staff assisting her to toilet. Pt has unsteady gait. Pt asking for snack before dinner. Glucose check done before snack. Pt eating well. Pt voided 1100 ml in hat plus some overflowed into toilet.
[2018-07-14] MEDS: INSULIN GLARGINE 100 UNIT/ML 3ML PEN 25 UNIT SUBCUT (22:05)
[2018-07-15] VITALS: BP 91/59; PULSE 114; RESP 12; TEMP 37; O2SAT 98
--- NOTE | 2018-07-15 | DI.CT.S_ITS ---
PROCEDURE: CT UE LT WO CON INDICATIONS: left middle finger cellulitis TECHNIQUE: Noncontrast 1 mm axial sections acquired through the carpal bones, with coronal and sagittal reformats. COMPARISON: None. FINDINGS: Image quality: Excellent. Bones: No osteomyelitis. Soft tissues: Edema involves the third digit, without visualized abscess involving that digit or the adjacent hand. IMPRESSION: Prominent soft tissue swelling involves the third digit, without evidence of osteomyelitis or foreign body, or abscess seen. Please note that the absence of intravenous contrast does significantly limit the ability of this study to detect small abscess or lesion. Dictated by: Jaquan Vazquez M.D. on 07/15/2018 at 11:10 Approved by: Jaquan Vazquez M.D. on 07/15/2018 at 11:12
[2018-07-15] MEDS: PIPERACILLIN-TAZO 3.375 GM/50 ML FROZ.PIGGY IV ×2 (02:35→08:05)
[2018-07-15 05:00] VITALS: BP 112/70; PULSE 94; RESP 16; TEMP 36.7; O2SAT 96
[2018-07-15 05:35] LABS: Add Manual Diff / Slide Review NO; Basophils Percent Auto 0.9 % (0-2); Hematocrit 40.6 % (36-46); Hemoglobin 14.2 g/dL (12.0-16.0); Lymphocytes Percent Auto 30.7 % (25-40); Mean Corpuscular Hemoglobin 33.9 PG (26-34); Mean Corpuscular Volume 96.8 fL (80-100); Monocytes Percent Auto 7.5 % (3-14); Neutrophils Absolute Auto 3500 /uL (3000-5900); Neutrophils Percent Auto 59.9 % (50-75); Platelet Count 253 X10^3/uL (150-400); Red Blood Cell Count 4.19 X10^6/uL (4.0-5.2); Red Cell Distribution Width 14.1 % (11.6-14.8); White Blood Cell Count 5.9 X10^3/uL (4.5-11.0)
[2018-07-15 05:39] LABS: Blood Urea Nitrogen 15 mg/dL (7-17); Calcium 8.4 mg/dL (8.4-10.2); Carbon Dioxide 31 mmol/L (22-32); Chloride 96 mmol/L (98-107); Estimated Glomerular Filt Rate > 60.0 mL/min (>60); Glucose 272 mg/dL (70-100); HEMOLYSIS 29 (0-50); Potassium 3.8 mmol/L (3.4-5.1); Sodium 133 mmol/L (137-145)
[2018-07-15 08:00] VITALS: BP 96/67; PULSE 103; RESP 16; TEMP 36.4; O2SAT 97
[2018-07-15] MEDS: ENOXAPARIN 40 MG/0.4 ML SYRINGE SUBCUT (08:05)
[2018-07-15] MEDS: SODIUM CHLORIDE 0.9% FLUSH 10 ML IV (08:06)
[2018-07-15] MEDS: ACETAMINOPHEN 325 MG TABLET 650 MG PO (08:06)
[2018-07-15] MEDS: INSULIN ASPART 100 UNIT/ML INSULN PEN SUBCUT ×2 (08:07→11:41)
[2018-07-15] MEDS: INSULIN GLARGINE 100 UNIT/ML 3ML PEN 25 UNIT SUBCUT (08:07)
--- NOTE | 2018-07-15 10:58 | PC.NURSE ---
Addendum entered by Sherman Le R.N. 07/15/18 12:23: Provided d/c packet and rxs to pt. Reviewed d/c packet, medications, prescriptions, next doses due. Pt declines need for education involving diabetes or insulin use. She states she will make her own f/u appt. Educated her on cellulitis, necessity of abx, abx regimen. Educated to s/s of decompensating infx and to seek care for worsening of symptoms. Educated to necessity of maintaining controlled BGs in relation to wound healing. She verbalizes understanding and voices no questions. She is unsure when her ride will be here. Removed PIV x2 with cath tips intact and removed tele box. Original Note: Pt states she normally sees Dr. Mayfield at [facility]. She declines allowing staff to make a follow up appointment.
--- NOTE | 2018-07-15 12:48 | PT.IPTN ---
Current Diagnoses Type 2 diabetes mellitus with ketoacidosis without coma (07/13/18) Physical Therapy Treatment Note M2 PT-IP Current Condition Start: 07/14/18 14:12 Freq: NEEDED Status: Active Protocol: Document 07/14/18 09:05 [facility] (Rec: 07/14/18 14:33 [facility] [id number]) Physical Therapy Current Condition Current Condition Evaluation Date 07/14/18 Treatment Diagnosis DKA, LUE 3rd digit cellulitis, impaired activity tolerance M3 PT-IP Subjective Start: 07/14/18 14:12 Freq: NEEDED Status: Active Protocol: Document 07/15/18 12:46 (Rec: 07/15/18 12:48 [id number]) Subjective Physical Therapy Visit Type Type Treatment Note Notes PT rounded on pt at 9:28 am. Pt states she is having bowel problems and does not want to work with PT. She refused to clarify if she was experiencing diahrea or constipation. Pt educated in role of PT to determine her safety for home environment and the benefits of mobility. She still refuses. PT will attempt again this afternoon. M4 PT-IP Mobility and Gait Start: 07/14/18 14:12 Freq: NEEDED Status: Active Protocol: Document 07/14/18 09:05 [facility] (Rec: 07/14/18 14:33 [facility] [id number]) PT-Bed Mobility Assessment Supine to Sit Supine to Sit Minimal Assistance Scooting Scooting to Edge of Bed Standby Assistance PT-Transfer Assessment Sit to and From Stand Sit to and from Stand Standby Assistance Equipment Transfer Assistive Device Gait Belt Transfers Transfer Destination Chair Transfer Technique Stand Step Pivot Transfer Ability Level of Assist Standby Assistance Comments Mobility Comments Slow pacing with activity, pt still very lethargic. PT-Balance Assessment Sitting Balance and Reactions Static Sitting Balance Ability Good Dynamic Sitting Balance Ability Good Standing Balance and Reactions Static Standing Balance Ability Fair Dynamic Standing Balance Ability Fair Device Used none M5 PT-IP Objective Assessments Start: 07/14/18 14:12 Freq: NEEDED Status: Active Protocol: Document 07/14/18 09:05 [facility] (Rec: 07/14/18 14:33 [facility] [id number]) Orientation Orientation/Cognition Level of Alertness Confusional State Safety Awareness Decreased Safety Awareness Strength Lower Extremity Strength Assessment Bilaterally Impaired Hip flexion 4/5 B Knee extension 4/5 B, flexion 4/5 B Coordination Assessment Assessment Coordination Comments unable to test due to impaired cognition Sensation Assessment Comments Sensation Comments unable to test due to impaired cognition M6 PT-IP Treatment Start: 07/14/18 14:12 Freq: NEEDED Status: Active Protocol: Document 07/14/18 09:05 [facility] (Rec: 07/14/18 14:33 [facility] [id number]) Physical Therapy Treatment Education Education Provided Safety M7 PT-IP Assessment and Plan Start: 07/14/18 14:12 Freq: NEEDED Status: Active Protocol: Document 07/14/18 09:05 [facility] (Rec: 07/14/18 14:33 [facility] [id number]) PT Summary Assessment and Plan Potential Rehabilitation Potential Good Status of Condition at Evaluation Evolving Summary Impairments Strength Balance Cognition Transfers Gait Activity Tolerance Assessment Summary Pt overall is very lethargic, able to answer some questions but just yes/no answers only. She was reluctant to answer any questions about her living situation. Pt is not safe to mobilize beyond short transfer steps this a.m. due to impaired alertness. Expect pt to be able to d/c home when medically stable given her age and prior level of function. Goals Bed Mobility Goal Independent Transfer Goal Independent Gait Goal Independent Gait Distance 150 Days to Meet Goals 3 Frequency of Treatment Frequency Of Treatment Twice a Day Treatment Plan Physical Therapy Treatment Plan Bed Mobility Training Transfer Training Gait Training Therapeutic Exercise Balance Retraining Recommendations To Nursing Amount of Assist Needed 1 Person Assist Discharge Recommendations PT Discharge Recommendations Home
--- NOTE | 2018-07-15 13:16 | OT.IP.TRT ---
Current Diagnoses Type 2 diabetes mellitus with ketoacidosis without coma (07/13/18) Occupational Therapy Treatment Note M3 OT- IP Subjective and Pain Start: 07/15/18 13:15 Freq: Status: Active Protocol: Document 07/15/18 13:15 YONI (Rec: 07/15/18 13:15 [email or web address] [id number]) OT- Subjective Occupational Therapy Visit Type Type Administrative Note Visit Start Time 13:15 Notes OT referral received, but pt discharged before OT evaluation could be initiated. No charge.
[2018-07-15 17:27] LABS: Osmolality, Serum 314 mosm/kg (260-310)
--- NOTE | 2018-07-15 19:39 | P.DS_ITS ---
History of Present Illness Date Patient Seen: 07/15/18 Time Patient Seen: 19:33 Chief complaint: Unresponsive, Diabetic Narrative: Date Patient Seen: 07/13/18 Time Patient Seen: 11:31 Chief complaint: Unresponsive, Diabetic Narrative: Most of the history was obtained through medical records and verbal sign-out from emergency department provider, as patient is not responding/ refuses to answer, and no family at bedside. 32-year-old female with past medical history of insulin-dependent diabetes mellitus, substance abuse (including tobacco and methamphetamine) was brought in by ambulance for unresponsiveness. It is reported, that patient's has noted patient to be increasingly lethargic and less to respond over the past few days. He has reported minimal movement out of bed and this regarding her surroundings. Her blood sugars have been consistently high for the past couple of days, as per family. This morning, noticed the patient was having rapid breathing and was completely unresponsive to him, which is when he got concerned and called the ambulance. Once ambulance arrived, they have noted patient to be unresponsive but protecting her airways. Her blood glucose at that time revealed 450, after which 1 L normal saline bolus was given and patient was brought to emergency department. On admission to emergency department, patient's vital signs showed blood pressure 100/48, respirations 20, saturation 100% on room air, and pulse of 110 which decreased to 98 after 2 L IV NS bolus administration. The patient remained minimally responsive, only responding/verbalizing when she needed to go to the bathroom and to painful stimulation. She was noted to have left 3rd hand digit swelling, erythema, and central ulceration with slight drainage. Lab work revealed WBCs 24.5, hemoglobin 14.9, hematocrit 45.3, platelets 420. Sodium 135, potassium 3.9, chloride 102, bicarb less than 5, BUN 24, creatinine 0.8, blood glucose 434. Ketones were 17.47, anion gap 28, pH 6.9. X-ray of the left hand revealed no drainable abscess pocket, but was consistent with soft tissue swelling. Toxicology screen positive for amphetamine. Patient was given 2 L IV fluids, vanc and Zosyn IV, and transferred to ICU for further management of diabetic ketoacidosis and left 3rd digit cellulitis. Discharge Providers Date of admission: 07/13/18 11:11 Consults: 07/13/18 13:06 Consult to Dietitian, Adult Routine Comment: Reason For Exam: assessed high risk, DKA Consult to Respiratory Therapy Evaluate & Treat Comment: Physician Instructions: Evaluate and treat 07/14/18 07:56 Consult to Occupational Therapy Evaluate & Treat Comment: Physician Instructions: Evaluate and treat Consult to Physical Therapy Evaluate & Treat Comment: Physician Instructions: Evaluate and Treat 07/14/18 07:57 Consult to Dietitian, Adult Routine Comment: Reason For Exam: deconditioning, malnutrition Discharge provider: Alirio Kidd DO Discharge Date: 07/15/18 Summary Discharge Diagnosis: DKA RESOLVED LEFT MIDDLE FINGER CELLULITIS. DISCHARGED ON ANTIBIOTICS MEDICAL NONCOMPLIANCE. EXTENSIVE COUNSELING GIVEN POSSIBLE ILLICIT DRUG USE; EXCESSIVE CLOSELY GIVEN WELL; TOBACCO ABUSE AND NICOTINE ADDICTION. COUNSELING GIVEN Hospital Course: Date Patient Seen: 07/13/18 Time Patient Seen: 11:31 Chief complaint: Unresponsive, Diabetic Narrative: Most of the history was obtained through medical records and verbal sign-out from emergency department provider, as patient is not responding/ refuses to answer, and no family at bedside. - A 32-YEAR-OLD FEMALE WHICH APPEARED TO BE MEDICALLY NONCOMPLIANT - PATIENT HAS A HISTORY OF INSULIN-DEPENDENT DIABETES. SHE WAS ADMITTED IN DKA. - HER DKA WAS TREATED APPROPRIATELY AND PATIENT WAS STARTED ON HER HOME MEDICATIONS WHICH SHE SUSPECTS SHE HAS NOT TAKEN - SHE ALSO HAD SWELLING ON THE LEFT MIDDLE FINGER. SUBSEQUENT CT SCAN OF THE HAND DID NOT SHOW ANY EVIDENCE OF ABSCESS. THERE WAS NO FRACTURE. - SHE WAS DISCHARGED ON ORAL ANTIBIOTICS AND RECOMMENDED TO FOLLOW UP WITH HER PRIMARY CARE WITH POSSIBLE REFERRAL TO ORTHOPEDIC SURGERY IF INDICATED - AT THIS POINT SHE APPEARS TO BE STABLE. SHE IS REQUESTING TO GO HOME - SHE WILL BE DISCHARGED TODAY IF ADDITIONAL MEASURE DEFER TO OUTPATIENT PROVIDERS. - HER LABS ARE STABLE. HER LEUKOCYTOSIS IS RESOLVED. -SHE WAS DISCHARGED ON LEVAQUIN AND CLINDAMYCIN FOR 10 DAYS Status at Discharge Cognitive/behavioral status at discharge: STABLE AT BASELINE TO HOME Functional status at discharge: independent ambulation Overall status at discharge: patient is back to baseline Time Spent with Patient Greater than 30 minutes Exam Vital Signs (past 8 hours): - 07/15/18 05:00 07/15/18 08:00 Temperature 98.1 F 97.5 F L Pulse Rate 94 H 103 H Respiratory Rate 16 16 Blood Pressure 112/70 96/67 Pulse Oximetry 96 97 Oxygen Delivery Method Room Air Oxygen Flow Rate 0 Narrative Exam Narrative: NO ACUTE DISTRESS. PATIENT IS ALERT ORIENTED X3. VITAL SIGNS STABLE HEAD ATRAUMATIC NORMOCEPHALIC NECK : SUPPLE WITHOUT ADENOPATHY BECAUSE SHE WOULD HAS REVIEWED THE EYE: EOMI, PERRLA, NORMAL CONJUNCTIVA CHEST: REGULAR RATE.. NO RUBS. PMI IS NON DISPLACED. 1/6 SYSTOLIC MURMUR NOTED ON THE 2ND INTRACOSTAL IN THE RIGHT PULMONARY DECREASED OVER THE BASES. MILD BIBASILAR CRACKLES NOTED; NO INCREASED DULLNESS TO PERCUSSION EXTREMITIES: NO EDEMA. SWELLING TO THE LEFT MIDDLE FINGER. NO DRAINAGE FROM REDNESS NOTED.. NO CYANOSIS CLUBBING NOTED. NEURO: CRANIAL NERVES 2-12 GROSSLY INTACT. NO FOCAL NEUROLOGICAL DEFICIT NOTED. MSK: NORMAL RANGE OF MOTION FOR AGE. NO JOINT EFFUSION. SKIN: NORMAL FOR ETHNICITY; NO ECCHYMOSIS. NO LESION. FAIR TURGOR. : NORMAL EXTERNAL GENITALIA. PSYCH : APPROPRIATE MOOD AND AFFECT. ALERT AWAKE ORIENTED X3 Objective Labs Result Diagrams: 07/15/18 05:04 07/15/18 05:04 Labs: Laboratory Results - last 24 hr 07/15/18 07/15/18 05:04 05:04 WBC 5.9 D RBC 4.19 Hgb 14.2 Hct 40.6 MCV 96.8 MCH 33.9 MCHC 35.0 RDW 14.1 Plt Count 253 Neut % (Auto) 59.9 D Lymph % (Auto) 30.7 D [place] % (Auto) 7.5 Eos % (Auto) 1.0 L Baso % (Auto) 0.9 Neut # (Auto) 3500 Sodium 133 L Potassium 3.8 Chloride 96 L Carbon Dioxide 31 BUN 15 Creatinine 0.50 L Estimated GFR > 60.0 BUN/Creatinine Ratio 30.0 H Glucose 272 H D Calcium 8.4 Discharge Plan Discharge Plan Patient Disposition: Home Discharge Med Rec/Prescriptions Prescriptions: New nicotine 14 mg/24 hr Patch 24 Hour 21 mg Topical DAILY Qty: 30 RF: 0 clindamycin HCl 300 mg capsule 300 mg PO QID 10 Days Qty: 40 RF: 0 levofloxacin 750 mg tablet 750 mg PO DAILY 10 Days Qty: 10 RF: 0 Continue cyclobenzaprine 10 MG tablet 10 mg PO TIDP PRN (Reason: Spasms) Qty: 0 RF: 0 aspirin 81 MG tablet,delayed release (DR/EC) 81 mg PO QDAY Qty: 0 RF: 0 ibuprofen 400 MG tablet 400 mg PO PRN PRN (Reason: Pain (Scale Score 1-3)) Qty: 0 RF: 0 lisinopril 2.5 MG tablet 2.5 mg PO QDAY Qty: 0 RF: 0 insulin aspart U-100 [Novolog Flexpen U-100 Insulin] 100 UNIT/1 ML insulin pen SQ QIDACHS 30 Days Qty: 0 RF: 0 insulin aspart U-100 [Novolog Flexpen U-100 Insulin] 100 UNIT/1 ML insulin pen 10 unit SQ TIDCC 30 Days Qty: 0 RF: 0 insulin glargine [Lantus U-100 Insulin] 100 unit/mL solution 30 unit SUBCUT BID Qty: 10 RF: 3 Discontinued fluconazole [Diflucan] 100 MG tablet 100 mg PO QDAY Qty: 5 RF: 0 Provider Discharge Instructions Diet: Carb-consistent/Diabetic Visit Report/Discharge Packet Instructions: DI for Cellulitis -- Adult, Type 1 Diabetes, Insulin Glargine ( rDNA origin) Injection, Clindamycin, Levofloxacin Visit Report Forms: Stroke Signs & Symptoms Discharge Data Attending Provider: Leslie Guzman Admit Date/Time: 07/13/18 11:11 Discharges patient from system. Discharge Date/Time: 07/15/18 12:54 Quality VTE Deep Vein Thrombosis/Pulmonary Embolism Present on Admission: No
== END 2018-07-15 12:54 | disposition home or self-care (01) | DRG 420 ==
LOC: ED 10:49 → ICU 11:11
PROVIDERS: Nurse Practitioner Gerontology; Admitting Provider Internal Medicine; Emergency Provider Emergency Medicine; Visit Provider Internal Medicine
DX: E11.10 Type 2 diabetes mellitus with ketoacidosis without coma (principal); L98.491 Non-pressure chronic ulcer of skin of other sites limited to breakdown of skin; E87.1 Hypo-osmolality and hyponatremia; F15.10 Other stimulant abuse, uncomplicated; L03.012 Cellulitis of left finger; Z79.4 Long term (current) use of insulin; F17.210 Nicotine dependence, cigarettes, uncomplicated; Z91.14 Patient's other noncompliance with medication regimen; R00.0 Tachycardia, unspecified
CPT/HCPCS: 36415; 36600; 51701; 73130; 73200; 80048; 80053; 80305; 80320; 81003; 81025; 82009; 82805; 82962; 83036; 83605; 83690; 83735; 83930; 84100; 84145; 85025; 87040; 87070; 87075; 87077; 87086; 87205; 87797; 93005; 94762; 96365; 96367; 96368; 97162; 99285; 99291; 99292; J1650; J2543; J3370; J3480

== ENCOUNTER 2018-07-19 16:51 | Inpatient (IN) | payer OTHER, MEDICAID, SELFPAY ==
[2018-07-13 12:53] VITALS: BMI 16.2
[2018-07-19 17:06] VITALS: BP 104/71; PULSE 104; RESP 29; O2SAT 100
--- NOTE | 2018-07-19 17:09 | DI.RAD.S_ITS ---
PROCEDURE: XR CHEST 1V INDICATIONS: hyperglycemia TECHNIQUE: One view of the chest was acquired. COMPARISON: None. FINDINGS: Surgical changes and devices: None. Lungs and pleura: No pleural effusions or pneumothorax. Mild patchy bilateral perihilar opacity. Mediastinum: Mediastinal contours appear normal. Heart size is normal. Bones and chest wall: No suspicious bony lesions. Overlying soft tissues appear unremarkable. IMPRESSION: Mild atypical pneumonia. Dictated by: Bryon Plascencia M.D. on 07/19/2018 at 17:48 Approved by: Bryon Plascencia M.D. on 07/19/2018 at 17:48
--- NOTE | 2018-07-19 17:10 | ED.AMS ---
HPI - Altered Mental Status General Chief Complaint: Diabetic Problem Stated Complaint: DKA - Unresponsive Time Seen by Provider: 07/19/18 17:01 Source: family and EMS Mode of arrival: EMS Limitations: altered mental status History of Present Illness HPI narrative: This is a 32-year-old female who comes to the emergency department unresponsive for potential DKA. Patient is a known insulin-dependent diabetic and has been here multiple times for similar. Patient's significant other states that she was normal earlier this morning, when he came back home she was altered and breathing quickly. He states that she has been taking insulin but he states she does not eat properly or take care of herself appropriately for her diabetes. He did ask specifically about mental health evaluation because of he feels that her depression is causing her not to care for herself properly. Patient is not able to answer any questions for me in the department. Related Data Home Medications Medication Instructions Recorded Confirmed acyclovir 800 mg PO DAILY 07/19/18 clindamycin HCl 300 mg PO QID 07/19/18 07/19/18 insulin aspart U-100 [Novolog 2 - 18 units SUBCUT AC 07/19/18 07/19/18 U-100 Insulin aspart] insulin glargine [Lantus U-100 25 unit SUBCUT BID 07/19/18 07/19/18 Insulin] nicotine 21 mg TOPICAL DAILY 07/19/18 07/19/18 ofloxacin 1 drp OPHTHALMIC (EYE) DIRECTED 07/19/18 07/19/18 Previous Rx's Medication Instructions Recorded levofloxacin 750 mg PO DAILY 10 Days #10 tab 07/15/18 Allergies Allergy/AdvReac Type Severity Reaction Status Date / Time No Known Drug Allergies Allergy Verified 07/19/18 17:06 Review of Systems Review of Systems unobtainable due to mental status Exam Narrative Exam Narrative: GEN: Thin female, obtunded , patient appears to be in severe distress. HEENT: Atraumatic, right pupil is equal round reactive to light, left pupil has hazy opacification consistent with cataract (per this is chronic), nares are clear, TMs are clear with no fluid, there is no conjunctival pallor. Throat is clear without any exudates, erythema, tonsillar enlargement or uvular deviation, dry mucous membranes. HEART: Tachycardic but regular rate and rhythm without murmur, clicks, rubs. LUNGS:Lungs clear to auscultation, no wheezes, rales, crackles, chest moves symmetrically, tachypneic. ABD:bowel sounds normal, soft, non-tender, no guarding, rebound, rigidity, no masses noted, no hepatosplenomegaly :No CVA tenderness MSCL: Patient has multiple abrasions on extremities and face consistent with skin picking. NEURO: Patient withdraws to painful stimuli, Initial Vital Signs Initial Vital Signs: Vital Signs Pulse Rate 104 H 07/19/18 17:06 Respiratory Rate 29 H 07/19/18 17:06 Blood Pressure 104/71 07/19/18 17:06 Pulse Oximetry 100 07/19/18 17:06 Scores GCS [place] coma scale eye opening: To pressure [place] coma scale verbal response: Sounds [place] coma scale motor response: Localising [place] coma scale total score: 9 Course Orders Ordered: ED Orders 07/19/18 17:01 Arterial Blood Gas Stat 07/19/18 17:09 XR chest 1V Stat Venous Blood Gas Stat 07/19/18 17:20 Complete Blood Count AUTO DIFF Stat Comprehensive Metabolic Panel Stat Ketones (Beta-Hydroxybutyrate) Stat Lactate (Lactic Acid) Stat 07/19/18 17:56 Blood Culture Stat 07/19/18 19:13 Urine Drug Screen, Rapid Stat Dextrose (D50w) 25 gm IV PRN PRN PRN Reason: Hypoglycemia Insulin Human Regular 100 unit (/ Sodium Chloride) 100 mls @ 6 mls/hr IV TITRATE SALAS; Protocol Last Admin: 07/19/18 18:53 Dose: Discontinued Medications Sodium Chloride (Normal Saline 0.9%) 1,000 mls @ 1,000 mls/hr IV BOLUS ONE Stop: 07/19/18 18:07 Last Admin: 07/19/18 17:50 Dose: 1,000 mls/hr Insulin Human Regular 100 unit (/ Sodium Chloride) 100 mls @ 6 mls/hr IV TITRATE SALAS; Protocol Last Admin: 07/19/18 18:29 Dose: 6 units/hr, 6 mls/hr Vital Signs - 8 hr 07/19/18 17:06 07/19/18 18:34 Pulse Rate 104 H 95 H Respiratory Rate 29 H 20 Blood Pressure 104/71 Blood Pressure [Left Arm] 93/50 L Pulse Oximetry 100 99 MDM - Altered Mental Status Differential Diagnosis Likely altered mental status, delirium, hyponatremia, other (DKA) and sepsis Lab Data Attestation: I reviewed the patient's lab results. Result diagrams: 07/19/18 17:20 07/19/18 17:20 Lab Results 07/19/18 07/19/18 07/19/18 Range/Units 17:01 17:20 17:20 WBC 9.1 (4.5-11.0) X10^3/uL RBC 4.19 (4.0-5.2) X10^6/uL Hgb 14.2 (12.0-16.0) g/dL Hct 45.1 (36-46) % MCV 107.7 H D (80-100) fL MCH 33.8 (26-34) PG MCHC 31.4 (30-36) % RDW 14.4 (11.6-14.8) % Plt Count 488 H (150-400) X10^3/uL Neut % (Auto) 69.6 (50-75) % Lymph % (Auto) 22.4 L (25-40) % [place] % (Auto) 6.5 (3-14) % Eos % (Auto) 0.5 L (2-4) % Baso % (Auto) 1.0 (0-2) % Neut # (Auto) 6300 H (6070-9481) /uL ABG pH 6.84 L* (7.35-7.45) ABG pCO2 7.7 L* (35-45) mmHg ABG pO2 157 H (80-100) mmHg ABG HCO3 1 L (22-26) mmol/L ABG Total CO2 < 5 L (21-31) mmol/L ABG O2 Saturation 97 (95-100) % ABG Base Excess < -30.0 L (-2-2) mmol/L FiO2 0.21 Sodium 134 L (137-145) mmol/L Potassium 4.4 (3.4-5.1) mmol/L Chloride 100 (98-107) mmol/L Carbon Dioxide < 5 L* (22-32) mmol/L BUN 21 H (7-17) mg/dL Creatinine 0.80 (0.52-1.04) mg/dL Estimated GFR > 60.0 (>60) mL/min BUN/Creatinine Ratio 26.3 H (6-22) Glucose 694 H* D (70-100) mg/dL Lactate (0.7-2.1) mmol/L Calcium 8.4 (8.4-10.2) mg/dL Total Bilirubin 0.3 (0.2-1.3) mg/dL AST 17 (14-36) IU/L ALT 37 (9-52) IU/L Alkaline Phosphatase 141 H D (38-126) U/L Total Protein 6.1 L (6.3-8.2) g/dL Albumin 3.7 (3.5-5.0) g/dL Globulin 2.4 (1.7-4.1) g/dL Albumin/Globulin Ratio 1.5 (1.0-2.8) Ketones 16.32 H (<0.27) mmol/L //18 Range/Units 17:20 WBC (4.5-11.0) X10^3/uL RBC (4.0-5.2) X10^6/uL Hgb (12.0-16.0) g/dL Hct (36-46) % MCV (80-100) fL MCH (26-34) PG MCHC (30-36) % RDW (11.6-14.8) % Plt Count (150-400) X10^3/uL Neut % (Auto) (50-75) % Lymph % (Auto) (25-40) % [place] % (Auto) (3-14) % Eos % (Auto) (2-4) % Baso % (Auto) (0-2) % Neut # (Auto) (5244-4200) /uL ABG pH (7.35-7.45) ABG pCO2 (35-45) mmHg ABG pO2 (80-100) mmHg ABG HCO3 (22-26) mmol/L ABG Total CO2 (21-31) mmol/L ABG O2 Saturation (95-100) % ABG Base Excess (-2-2) mmol/L FiO2 Sodium (137-145) mmol/L Potassium (3.4-5.1) mmol/L Chloride (98-107) mmol/L Carbon Dioxide (22-32) mmol/L BUN (7-17) mg/dL Creatinine (0.52-1.04) mg/dL Estimated GFR (>60) mL/min BUN/Creatinine Ratio (6-22) Glucose (70-100) mg/dL Lactate 1.9 (0.7-2.1) mmol/L Calcium (8.4-10.2) mg/dL Total Bilirubin (0.2-1.3) mg/dL AST (14-36) IU/L ALT (9-52) IU/L Alkaline Phosphatase (38-126) U/L Total Protein (6.3-8.2) g/dL Albumin (3.5-5.0) g/dL Globulin (1.7-4.1) g/dL Albumin/Globulin Ratio (1.0-2.8) Ketones (<0.27) mmol/L Point of Care Testing Test Results Negative Urine Dip Bedside Urine Glucose 1000 mg/dl Bedside Urine Bilirubin - Negative Bedside Urine Ketone +++ 80 Urine Specific [place] 1.030 Bedside Urine Occult Blood + Bedside Urine pH 6.0 Bedside Urine Protein +/- 15 Bedside Urine Urobilinogen - Negative Bedside Urine Nitrite - Negative Bedside Urine Leukocytes - Negative Esterase ABG Data ABG results: 6.84 pH, pCO2 of 7.7, PO2 of 157, bicarb of 1.3 with a SpO2 of 97%. Attestation: I personally reviewed and interpreted this ABG as follows: Interpretation: Metabolic acidosis, with partial respiratory compensation. [facility] Narrative Medical decision making narrative: Patient ABG shows a respiratory acidosis with a pH of 6.84, patient's labs are not back but patient is point of care glucose is greater than 500 she has a history of DKA and appears to be in DKA again although this has not been finalized with lab work. Spoke with Dr. helms he accepts for ICU admission. Patient is obtunded but protecting her airway at this time. I would avoid intubation unless absolutely necessary as it will likely drop her pH even further and potentially perceptions he had a cardiac arrest secondary to acidosis. Patient insulin drip was ordered but waiting to give for potassium level to return in case patient needs supplementation with potassium the sore starting insulin. She has received 1 L enroute with EMS is receiving a 2nd L at this time and will continue with fluid hydration until lab work is returned. Critical Care Time Critical Care Time: Yes Total Critical Care Time: 90 Attestation: The high probability of a clinically significant, sudden or life threatening deterioration of the [cardiac, respiratory, neurologic] system(s) required my full and direct attention, intervention and personal management. The aggregate critical care time was [90] minutes. This time is in addition to time spent performing reported procedures but includes the following: [x] Data Review and interpretation [x] Patient assessment and monitoring of vital signs [x] Documentation [x] Medication orders and management Discharge Plan Departure Patient Disposition: Admitted As Inpatient Clinical Impression: DKA (diabetic ketoacidoses) Admit Date/Time: 07/19/18 17:34 Admit Provider: Sekou Moura
--- NOTE | 2018-07-19 17:21 | CM.SWNOTE ---
ED ENVIRONMENTAL GEOLOGIST NOTE At the request of Dr Jimenez, [facility] met briefly with pt's boyfriend and provided resources. He expressed concerns that his gf's depression is impacting her ability to care for her diabetes. He stated that she would not be open to seeing a therapist, but he feels that she would benefit if it was the right person. Encouraged him to speak with her about talking with her PCP. Explained that her PCP might be able to offer medications that could be helpful for the depression. Dr Jimenez informed [facility] that pt will be admitted to and hopefully someone in [facility] can s peak with her further.
[2018-07-19 17:39] LABS: Lactate (Lactic Acid) 1.9 mmol/L (0.7-2.1)
[2018-07-19 17:40] LABS: Alanine Aminotransferase 37 IU/L (9-52); Albumin 3.7 g/dL (3.5-5.0); Albumin Globulin Ratio 1.5 (1.0-2.8); Alkaline Phosphatase 141 U/L (38-126); Aspartate Aminotransferase 17 IU/L (14-36); BUN Creatinine Ratio 26.3 (6-22); Bilirubin Total 0.3 mg/dL (0.2-1.3); Blood Urea Nitrogen 21 mg/dL (7-17); Calcium 8.4 mg/dL (8.4-10.2); Chloride 100 mmol/L (98-107); Estimated Glomerular Filt Rate > 60.0 mL/min (>60); Globulin 2.4 g/dL (1.7-4.1); Potassium 4.4 mmol/L (3.4-5.1); Sodium 134 mmol/L (137-145); Total Protein 6.1 g/dL (6.3-8.2)
[2018-07-19 17:48] LABS: HCO3 ABG 1 mmol/L (22-26); PCO2 ABG 7.7 mmHg (35-45); PO2 ABG 157 mmHg (80-100); pH ABG 6.84 (7.35-7.45)
[2018-07-19 17:49] LABS: TCO2 ABG < 5 mmol/L (21-31)
[2018-07-19 17:50] LABS: Base Excess ABG < -30.0 mmol/L (-2-2); Oxygen Saturation ABG 97 % (95-100)
[2018-07-19] MEDS: SODIUM CHLORIDE 0.9% 1,000 ML 1000 ML IV ×2 (17:50→19:32)
[2018-07-19 17:51] LABS: HEMOLYSIS 21 (0-50)
[2018-07-19 17:55] LABS: Add Manual Diff / Slide Review NO; Eosinophils Percent Auto 0.5 % (2-4); Hematocrit 45.1 % (36-46); Hemoglobin 14.2 g/dL (12.0-16.0); Lymphocytes Percent Auto 22.4 % (25-40); Mean Corpuscular HGB Conc 31.4 % (30-36); Mean Corpuscular Hemoglobin 33.8 PG (26-34); Mean Corpuscular Volume 107.7 fL (80-100); Monocytes Percent Auto 6.5 % (3-14); Neutrophils Absolute Auto 6300 /uL (3000-5900); Neutrophils Percent Auto 69.6 % (50-75); Platelet Count 488 X10^3/uL (150-400); Red Blood Cell Count 4.19 X10^6/uL (4.0-5.2); Red Cell Distribution Width 14.4 % (11.6-14.8); White Blood Cell Count 9.1 X10^3/uL (4.5-11.0)
[2018-07-19 18:02] LABS: Carbon Dioxide < 5 mmol/L (22-32); Glucose 694 mg/dL (70-100)
[2018-07-19 18:09] LABS: Ketones (Beta-Hydroxybutyrate) 16.32 mmol/L (<0.27)
--- NOTE | 2018-07-19 18:09 | P.HP_ITS ---
History of Present Illness Date Patient Seen: 07/19/18 Chief complaint: DKA - Unresponsive Narrative: This is a 32-year-old female with type 1 diabetes and recurrent diabetic ketoacidosis. She has been admitted to this hospital several times before for this condition. I am not able to interview her or her family members and so please read below the ED physician summary of their interaction with her significant other: Patient's significant other states that she was normal earlier this morning, when he came back home she was altered and breathing quickly. He states that she has been taking insulin but he states she does not eat properly or take care of herself appropriately for her diabetes. He did ask specifically about mental health evaluation because of he feels that her depression is causing her not to care for herself properly We are not aware of any particular risk factors such as chest pain, infection or dehydration prompting this event. The potassium is 4.4 and Her venous blood gas showed a pH of 6.8 with a PC of 22 and a bicarb of 5. Patient History Medical History DKA (diabetic ketoacidoses) (Acute) Diabetes (Acute) High anion gap metabolic acidosis (Acute) Insulin dependent diabetes mellitus (Acute) Substance abuse (Acute) Surgical history unknown (Acute) Family & Social History Family History: Reviewed 07/19/18 by Sekou Moura MD Social History: household members significant other Tobacco & Substance use: Tobacco type cigarettes Smoking Status Current every day smoker alcohol intake former alcohol intake frequency holiday/special occasion Substance Use Type unknown Meds Home Medications Medication Instructions Recorded Confirmed Type levofloxacin 750 mg PO DAILY 10 Days #10 tab 07/15/18 07/19/18 Rx acyclovir 800 mg PO DAILY 07/19/18 History clindamycin HCl 300 mg PO QID 07/19/18 07/19/18 History insulin aspart U-100 [Novolog 2 - 18 units SUBCUT AC 07/19/18 07/19/18 History U-100 Insulin aspart] insulin glargine [Lantus U-100 25 unit SUBCUT BID 07/19/18 07/19/18 History Insulin] nicotine 21 mg TOPICAL DAILY 07/19/18 07/19/18 History ofloxacin 1 drp OPHTHALMIC (EYE) DIRECTED 07/19/18 07/19/18 History Allergies Allergy/AdvReac Type Severity Reaction Status Date / Time No Known Drug Allergies Allergy Verified 07/19/18 17:06 Review of Systems Review of Systems unobtainable due to mental status Exam Vital Signs (past 8 hours): - 07/19/18 17:06 Pulse Rate 104 H Respiratory Rate 29 H Blood Pressure 104/71 Pulse Oximetry 100 Oxygen Delivery Method Room Air Narrative Exam Narrative: She is obtunded, but breathing steadily, without signs of airway compromise. I am not able to speak with her. She groans when blood is drawn. Her mouth appears to be very, very dry. There is no swelling in the neck. There is no thyromegaly. Eye exam is limited. Heart is tachycardic, regular rhythm, no murmur Lungs have coarse crackles bilaterally. Abdomen is soft, bowel sounds positive, no apparent tenderness, no organomegaly. Extremities have no ankle edema, Skin no rash or jaundice. Neuro exam reveals no increased reflexes, obvious cranial nerve irregularities or lateralizing deficits. Objective Labs Result Diagrams: 07/19/18 17:20 07/19/18 17:20 Labs: Laboratory Results - last 24 hr 07/19/18 07/19/18 07/19/18 17:01 17:20 17:20 WBC 9.1 RBC 4.19 Hgb 14.2 Hct 45.1 MCV 107.7 H D MCH 33.8 MCHC 31.4 RDW 14.4 Plt Count 488 H Neut % (Auto) 69.6 Lymph % (Auto) 22.4 L [place] % (Auto) 6.5 Eos % (Auto) 0.5 L Baso % (Auto) 1.0 Neut # (Auto) 6300 H ABG pH 6.84 L* ABG pCO2 7.7 L* ABG pO2 157 H ABG HCO3 1 L ABG Total CO2 < 5 L ABG O2 Saturation 97 ABG Base Excess < -30.0 L FiO2 0.21 Sodium 134 L Potassium 4.4 Chloride 100 Carbon Dioxide < 5 L* BUN 21 H Creatinine 0.80 Estimated GFR > 60.0 BUN/Creatinine Ratio 26.3 H Glucose 694 H* D Lactate Calcium 8.4 Total Bilirubin 0.3 AST 17 ALT 37 Alkaline Phosphatase 141 H D Total Protein 6.1 L Albumin 3.7 Globulin 2.4 Albumin/Globulin Ratio 1.5 Ketones 16.32 H 07/19/18 17:20 WBC RBC Hgb Hct MCV MCH MCHC RDW Plt Count Neut % (Auto) Lymph % (Auto) [place] % (Auto) Eos % (Auto) Baso % (Auto) Neut # (Auto) ABG pH ABG pCO2 ABG pO2 ABG HCO3 ABG Total CO2 ABG O2 Saturation ABG Base Excess FiO2 Sodium Potassium Chloride Carbon Dioxide BUN Creatinine Estimated GFR BUN/Creatinine Ratio Glucose Lactate 1.9 Calcium Total Bilirubin AST ALT Alkaline Phosphatase Total Protein Albumin Globulin Albumin/Globulin Ratio Ketones Assessment & Plan (1) DKA (diabetic ketoacidoses): Problem details: She has been started on the DKA protocol, beginning with IV fluids and then once the blood sugars are coming down then transition to an insulin drip. The potassium and other electrolytes will be followed closely and supplemented per the protocol. Once she is less obtunded, the blood sugars are better and the anion gap has closed and she will be transitioned to her home insulin regimen and oral intake. Qualifiers: Diabetes mellitus complication detail: Diabetes mellitus type: Current visit: Yes Status: Acute (2) Altered mental status: Problem details: This is expected to improve as her acidosis clears with IV fluid treatment and insulin drip. She will be in the intensive care unit due to the heavy monitoring demands and the altered mental status. Qualifiers: Altered mental status type: coma Coma depth: [place] coma 3-8 Coma timing: unspecified coma timing Qualified Code(s): R40.2430 - Tamela coma scale score 3-8, unspecified time Current visit: No Status: Acute (3) Poorly controlled diabetes mellitus: Problem details: Per her significant other she is not careful with her diet and apparently trips into DKA quickly. He feels that she has some depression and so that will be explored once she is more alert. Current visit: No Status: Acute
[2018-07-19] MEDS: INSULIN REGULAR, HUMAN 100 UNIT in SODIUM CHLORIDE 0.9% 100 ML 6 ML IV (18:29)
[2018-07-19 18:34] VITALS: BP 93/50; PULSE 95; RESP 20; O2SAT 99
--- NOTE | 2018-07-19 19:42 | PC.NURSE ---
Insulin ggt to continue in ICU
[2018-07-19 19:48] VITALS: BP 91/55; PULSE 103; RESP 18; TEMP 35.2; O2SAT 100
[2018-07-19 20:37] VITALS: BMI 16.2
[2018-07-19] MEDS: SODIUM CHLORIDE 0.9% 1,000 ML 150 ML IV (21:00)
[2018-07-19] MEDS: INSULIN REGULAR 100 UNIT/ML 3 ML VIAL IV ×2 (22:00→23:00)
[2018-07-19 22:40] LABS: Chloride 103 mmol/L (98-107); HEMOLYSIS < 15 (0-50); Potassium 3.8 mmol/L (3.4-5.1); Sodium 138 mmol/L (137-145)
[2018-07-19 22:48] LABS: Carbon Dioxide < 5 mmol/L (22-32); Glucose 711 mg/dL (70-100)
[2018-07-19] MEDS: HALOPERIDOL 5 MG/ML VIAL IM (22:55)
[2018-07-19 23:43] VITALS: BMI 16.2
[2018-07-20] VITALS (15 sets, daily range): BP systolic 80–104; BP diastolic 43–68; PULSE 95–121; RESP 12–27; TEMP 35.6–37.5; O2SAT 86–99
[2018-07-20] MEDS: INSULIN REGULAR 100 UNIT/ML 3 ML VIAL IV ×4 (00:05→03:00)
[2018-07-20] MEDS: POTASSIUM CHLORIDE 40 MEQ in SODIUM CHLORIDE 0.9% 500 ML 130 ML IV ×3 (00:15→11:17)
--- NOTE | 2018-07-20 01:34 | PC.NURSE ---
Patient admitted to rm 102 with insulin gtt attached to right AC but not infusing and no maintenance attached or infusing. Soon began screaming at the top of her lungs almost nonstop, unable to reason withpt or reassure. She began pulling at IVs and Dr. jerry contacted for order for restraints and applied with assistance as she had now decided to hit and kick and she was leaving having no idea where she was. The nonstop screaming continued scaring some of the other patients to tears. Meanwhile her boyfriend had called and said he was coming in, I met him at the door, and he was immediately confrontational saying he wanted her transferred to [facility]. I asked him to please look at her but not to stimulate her, he barged into the room and began interfering with her care, I asked him to stop, he would not. Security and the were called as boyfriend said he would take her, the coordinator called then police per the coordinators request of security. At that time boyfriend hastily left issuing verbal threats. Patients blood glucose then latanya to 711 by lab, and pt started screaming again, called and order for Haldol received and given with good results. Will continue q1 BG and titrations and bolus for BG>351. Pt sister Marbella here at 0200 and cooperative, checked on her then left.
[2018-07-20 01:48] LABS: Urine Amphetamines Positive (Negative); Urine Barbiturates Negative (Negative); Urine Benzodiazepines Negative (Negative); Urine Cocaine Negative (Negative); Urine MDMA Negative (Negative); Urine Methadone Negative (Negative); Urine Methamphetamines Negative (Negative); Urine Morphine/Opi cutoff 2000 Negative (Negative); Urine Oxycodone Negative (Negative); Urine Phencyclidine Negative (Negative); Urine Tetrahydrocannabinol Negative (Negative); Urine Tricyclic Antidepressant Negative (Negative)
[2018-07-20] MEDS: SODIUM CHLORIDE 0.45% 1,000 ML 150 ML IV (02:50)
[2018-07-20] MEDS: DEXTROSE 5%-0.45% NS 1,000 ML 100 ML IV ×2 (05:15→16:41)
[2018-07-20 05:34] LABS: Blood Urea Nitrogen 21 mg/dL (7-17); Calcium 8.1 mg/dL (8.4-10.2); Chloride 115 mmol/L (98-107); Estimated Glomerular Filt Rate > 60.0 mL/min (>60); Glucose 277 mg/dL (70-100); HEMOLYSIS < 15 (0-50); Potassium 3.8 mmol/L (3.4-5.1); Sodium 143 mmol/L (137-145)
[2018-07-20 05:35] LABS: Carbon Dioxide 9 mmol/L (22-32)
[2018-07-20] MEDS: INSULIN REGULAR, HUMAN 100 UNIT in SODIUM CHLORIDE 0.9% 100 ML IV (06:35)
--- NOTE | 2018-07-20 10:10 | PC.NURSE ---
Addendum entered by Sherman Le R.N. 07/20/18 14:16: Noted low BP with pt laying on her left side with right arm up (where the BP cuff is). Asked pt to roll over onto her back to reassess BP. BP 92/60 (75). Pt requests a warm blanket with clear, concise speech. Told her that her sister, Juli, called and had many questions regarding her condition. Asked pt if she would like me to discuss her condition with sister to which she shook her head no. Pt would not answer any further questions. Bed alarm in use. Call light in reach. Original Note: Addendum entered by Sherman Le R.N. 07/20/18 11:05: Notified Dr. Moura of 1000 BMP results. Notified of K+ level continuing to be 3.8. Instructs to give K+ Martinez per DKA protocol. Order placed. Original Note: Lab here drawing 1000 electrolytes. Pt has been somnolent/drowsy. Brief eye opening to verbal stimuli. Nods head yes/no to verbal and light tactile stimuli. ST 110s-120s on tele. Nods head yes when asked about pain but quickly drifts back to sleep. Initially SPO2 88% on RA and shallow, even RR of 15-18 noted. Applied NC O2 and titrated up to 3LPM for SPO2 94%. Dr. Moura rounded. Reported O2 needs, neuro status, CBGs, insulin needs. Reported left middle finger erythema and pt was previously treated for cellulitis for same finger. Continuing on DKA protocol for insulin titration with IVFs D5.5NS @ 100ML/hr per order.
[2018-07-20 10:31] LABS: Carbon Dioxide 13 mmol/L (22-32); Chloride 116 mmol/L (98-107); HEMOLYSIS < 15 (0-50); Potassium 3.8 mmol/L (3.4-5.1); Sodium 143 mmol/L (137-145)
--- NOTE | 2018-07-20 14:29 | CM.DPNOTE ---
DCP Chart Review/Assessment Patient is a 32 year old female who is a Readmit on 07/19/18 for DKA, unresponsive. Pt has [facility] and [facility] for insurance and her PCP is Dr. Mayfield at [facility]. EMR was reviewed. Per MD, pt not medically stable and had a positive UDS for amphetamines. Per RN, pt was given a dose of Haldol overnight for agitation and unsafe pulling of her lines and is currently sedated and not able to participate in a bedside assessment. Pt has 4 admits to [facility] this year for DKA related medical conditions and has previously declined community resources or referrals. Pt tends to provide minimal information regarding her living situation and supports. Per ER documentation, ER SW Naida met with pt's spouse who has concerns with pt's depression and lack of self care and was given some community resources and encouraged to involve pt's PCP in discussion regarding concerns. In the ICU, pt was agitated and inconsolable and then a friend or family member was bedside to visit and had to be asked to leave per RN note but no further disruptions today and no family has been present. SW attempted to call pt's listed spouse Barber ([phone]) to help attempt to get a clearer picture of the pt's living situation, community services and supports, etc.. but no answer from that number and voicemail was full. Plan: SW to follow closely in the morning to determine if pt is more medically appropriate to participate in goal directed discussion to determine if pt would be agreeable this time with having community resources set up for more support to reduce her risk of readmit again. SW to follow up on self care/depression concerns from . REY Pack
--- NOTE | 2018-07-20 15:27 | P.PN_ITS ---
Subjective Date Patient Seen: 07/20/18 Interval history: She is seen today to follow-up her diabetic ketoacidosis, type 1 diabetes mellitus and methamphetamine induced behavioral effects. She remains in the intensive care unit requiring close observation and intensive management, almost minute by minute, of her blood sugars, IV fluid drips and electrolyte changes. Overnight there was a large crisis where her significant other came in and was threatening to remove her from the hospital because her lips looked dry and he wanted her to drink some fluids. 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 It is clear that the methamphetamine use as documented on her urine drug screen is contributing to the delirium of her diabetic ketoacidosis. Her blood sugars have come down into the 200s and her insulin drip has been adjusted along with electrolyte management. Her anion gap has begun to close. Exam Vital Signs (past 8 hours): - 07/20/18 08:00 07/20/18 08:25 07/20/18 09:30 Temperature 99.5 F 98.7 F Pulse Rate 121 H 119 H 117 H Respiratory Rate 17 17 Blood Pressure 80/43 L 94/52 L 104/67 Pulse Oximetry 91 93 95 07/20/18 12:00 Temperature 98.0 F Pulse Rate 116 H Respiratory Rate 16 Blood Pressure 91/52 L Pulse Oximetry 94 Oxygen Delivery Method Nasal Cannula Oxygen Flow Rate 2 Narrative Exam Narrative: She remains quite sleepy/obtunded as typical for post Haldol effect. Heart is regular rate and rhythm without murmur. Lungs are clear to auscultation bilaterally. Extremities have no ankle edema. She does have a swollen, red, proximal left middle finger with several healing as ulcers on the reddened area. Objective Labs Result Diagrams: 07/19/18 17:20 07/20/18 Unknown Labs: Laboratory Results - last 24 hr 07/19/18 07/19/18 07/19/18 17:01 17:20 17:20 WBC 9.1 RBC 4.19 Hgb 14.2 Hct 45.1 MCV 107.7 H D MCH 33.8 MCHC 31.4 RDW 14.4 Plt Count 488 H Neut % (Auto) 69.6 Lymph % (Auto) 22.4 L [place] % (Auto) 6.5 Eos % (Auto) 0.5 L Baso % (Auto) 1.0 Neut # (Auto) 6300 H ABG pH 6.84 L* ABG pCO2 7.7 L* ABG pO2 157 H ABG HCO3 1 L ABG Total CO2 < 5 L ABG O2 Saturation 97 ABG Base Excess < -30.0 L FiO2 0.21 Sodium 134 L Potassium 4.4 Chloride 100 Carbon Dioxide < 5 L* BUN 21 H Creatinine 0.80 Estimated GFR > 60.0 BUN/Creatinine Ratio 26.3 H Glucose 694 H* D Lactate Calcium 8.4 Total Bilirubin 0.3 AST 17 ALT 37 Alkaline Phosphatase 141 H D Total Protein 6.1 L Albumin 3.7 Globulin 2.4 Albumin/Globulin Ratio 1.5 Nasal Screen MRSA (PCR) Urine Opiates Screen Ur Oxycodone Screen Urine Methadone Screen Ur Barbiturates Screen U Tricyclic Antidepress Ur Phencyclidine Scrn Ur Amphetamines Screen U Methamphetamines Scrn Ur MDMA Scrn (Ecstasy) U Benzodiazepines Scrn Urine Cocaine Screen U Marijuana (THC) Screen Ketones 16.32 H 07/19/18 07/19/18 07/19/18 17:20 20:05 22:21 WBC RBC Hgb Hct MCV MCH MCHC RDW Plt Count Neut % (Auto) Lymph % (Auto) [place] % (Auto) Eos % (Auto) Baso % (Auto) Neut # (Auto) ABG pH ABG pCO2 ABG pO2 ABG HCO3 ABG Total CO2 ABG O2 Saturation ABG Base Excess FiO2 Sodium 138 Potassium 3.8 Chloride 103 Carbon Dioxide < 5 L* BUN Creatinine Estimated GFR BUN/Creatinine Ratio Glucose 711 H* Lactate 1.9 Calcium Total Bilirubin AST ALT Alkaline Phosphatase Total Protein Albumin Globulin Albumin/Globulin Ratio Nasal Screen MRSA (PCR) Negative for mrsa Urine Opiates Screen Ur Oxycodone Screen Urine Methadone Screen Ur Barbiturates Screen U Tricyclic Antidepress Ur Phencyclidine Scrn Ur Amphetamines Screen U Methamphetamines Scrn Ur MDMA Scrn (Ecstasy) U Benzodiazepines Scrn Urine Cocaine Screen U Marijuana (THC) Screen Ketones 07/19/18 07/20/18 07/20/18 23:30 05:00 Unknown WBC RBC Hgb Hct MCV MCH MCHC RDW Plt Count Neut % (Auto) Lymph % (Auto) [place] % (Auto) Eos % (Auto) Baso % (Auto) Neut # (Auto) ABG pH ABG pCO2 ABG pO2 ABG HCO3 ABG Total CO2 ABG O2 Saturation ABG Base Excess FiO2 Sodium 143 143 Potassium 3.8 3.8 Chloride 115 H 116 H Carbon Dioxide 9 L* 13 L BUN 21 H Creatinine 0.60 Estimated GFR > 60.0 BUN/Creatinine Ratio 35.0 H Glucose 277 H D Lactate Calcium 8.1 L Total Bilirubin AST ALT Alkaline Phosphatase Total Protein Albumin Globulin Albumin/Globulin Ratio Nasal Screen MRSA (PCR) Urine Opiates Screen Negative Ur Oxycodone Screen Negative Urine Methadone Screen Negative Ur Barbiturates Screen Negative U Tricyclic Antidepress Negative Ur Phencyclidine Scrn Negative Ur Amphetamines Screen Positive H U Methamphetamines Scrn Negative Ur MDMA Scrn (Ecstasy) Negative U Benzodiazepines Scrn Negative Urine Cocaine Screen Negative U Marijuana (THC) Screen Negative Ketones Assessment & Plan Plan: Assessment/Plan Narrative: (1) DKA (diabetic ketoacidoses): Problem details: She continues on the DKA protocol, with IV insulin, IV fluids, potassium and other electrolytes followed closely and supplemented per the protocol. Once she is less obtunded, the blood sugars are better and the anion gap has closed, she will be transitioned to her home insulin regimen and oral intake. Qualifiers: Diabetes mellitus complication detail: Diabetes mellitus type: Current visit: Yes Status: Acute (2) Altered mental status: Problem details: This is expected to improve as her acidosis clears with IV fluid treatment and insulin drip. She will be in the intensive care unit due to the heavy monitoring demands and the altered mental status. Haldol was needed overnight. Qualifiers: Altered mental status type: coma Coma depth: [place] coma 3-8 Coma timing: unspecified coma timing Qualified Code(s): R40.2430 - [place] coma scale score 3-8, unspecified time Current visit: No Status: Acute (3) Poorly controlled diabetes mellitus: Problem details: Per her significant other she is not careful with her diet and apparently goes into DKA quickly. He said in the ED that she has some depression and so that will be explored once she is more alert. Current visit: No Status: Acute Left hand Cellulitis - will research recent tests and observe for progression. Consider antibiotic therapy with Vancomycin. Methamphetamine Use - Clarify this with her once she is more alert. Total time today of 36 min. More than 50% of that time spent in counseling and coordination of care for her DKA, extreme agitation and depression. Quality VTE Deep Vein Thrombosis/Pulmonary Embolism Present on Admission: No
[2018-07-20 15:39] LABS: BUN Creatinine Ratio 42.5 (6-22); Blood Urea Nitrogen 17 mg/dL (7-17); Calcium 8.1 mg/dL (8.4-10.2); Carbon Dioxide 17 mmol/L (22-32); Chloride 116 mmol/L (98-107); Estimated Glomerular Filt Rate > 60.0 mL/min (>60); Glucose 195 mg/dL (70-100); HEMOLYSIS < 15 (0-50); Potassium 4.1 mmol/L (3.4-5.1); Sodium 143 mmol/L (137-145)
[2018-07-20 15:40] LABS: Magnesium 1.7 mg/dL (1.6-2.3)
[2018-07-20] MEDS: FLUCONAZOLE 100 MG/50 ML PIGGYBACK IV (16:42)
[2018-07-20] MEDS: VANCOMYCIN 750 MG/150 ML FROZ.PIGGY 150 MG IV (18:16)
[2018-07-20] MEDS: INSULIN GLARGINE 100 UNIT/ML 3ML PEN 25 UNIT SUBCUT (20:21)
[2018-07-20] MEDS: SODIUM CHLORIDE 0.9% 1,000 ML 50 ML IV (21:32)
--- NOTE | 2018-07-20 22:15 | PC.NURSE ---
TERESITA shift note: pt somnolent first half of shift. At around 1999 pt awoke, answered all questions appropriately and requested food. Anion gap remains closed (10). Notified Dr. Moura of neuro status improvement. New order for sliding scale ACHS insulin coverage, Lantus 25 untis BID, diabetic diet, NS@50mls/hr. 2029 Gave Lantus 25units, BG 173. Turned off insulin gtt 1 hr later at 2130, BG 115. Pt had water and snack. Flat affect and resistant to answering questions, keeps eyes closed during conversation. BP 100s/50s. HR 105. 2L NC SpO2 94%.
[2018-07-21] MEDS: VANCOMYCIN 750 MG/150 ML FROZ.PIGGY 150 MG IV ×2 (00:26→06:21)
[2018-07-21 00:41] VITALS: BP 97/66; PULSE 101; RESP 14; TEMP 36.9; O2SAT 95
[2018-07-21 02:00] VITALS: BP 99/71; PULSE 98; RESP 14; O2SAT 97
[2018-07-21 05:08] VITALS: BP 98/67; PULSE 101; RESP 17; TEMP 37.3; O2SAT 93
[2018-07-21 05:18] LABS: BUN Creatinine Ratio 32.5 (6-22); Blood Urea Nitrogen 13 mg/dL (7-17); Calcium 8.1 mg/dL (8.4-10.2); Carbon Dioxide 21 mmol/L (22-32); Chloride 111 mmol/L (98-107); Estimated Glomerular Filt Rate > 60.0 mL/min (>60); Glucose 158 mg/dL (70-100); HEMOLYSIS < 15 (0-50); Potassium 3.2 mmol/L (3.4-5.1); Sodium 137 mmol/L (137-145)
[2018-07-21 06:00] VITALS: BP 97/59; PULSE 103; RESP 14; O2SAT 93
[2018-07-21 08:00] VITALS: BP 113/61; PULSE 107; RESP 14; TEMP 37.4; O2SAT 93
[2018-07-21] MEDS: INSULIN ASPART 100 UNIT/ML INSULN PEN SUBCUT ×2 (08:33→12:14)
[2018-07-21] MEDS: INSULIN GLARGINE 100 UNIT/ML 3ML PEN 25 UNIT SUBCUT (08:33)
[2018-07-21] MEDS: POTASSIUM CHLORIDE 20 MEQ TAB 40 MEQ PO (08:51)
--- NOTE | 2018-07-21 09:52 | PM.DS.1 ---
History of Present Illness Chief complaint: DKA - Unresponsive Narrative: This is a 32-year-old female with type 1 diabetes and recurrent diabetic ketoacidosis. She has been admitted to this hospital several times before for this condition. I am not able to interview her or her family members and so please read below the ED physician summary of their interaction with her significant other: Patient's significant other states that she was normal earlier this morning, when he came back home she was altered and breathing quickly. He states that she has been taking insulin but he states she does not eat properly or take care of herself appropriately for her diabetes. He did ask specifically about mental health evaluation because of he feels that her depression is causing her not to care for herself properly We are not aware of any particular risk factors such as chest pain, infection or dehydration prompting this event. The potassium is 4.4 and Her venous blood gas showed a pH of 6.8 with a PC of 22 and a bicarb of 5. Discharge Providers Date of admission: 07/19/18 17:34 Consults: 07/20/18 01:17 Consult to Respiratory Therapy Evaluate & Treat Comment: Physician Instructions: Evaluate and treat Discharge provider: Sekou Moura MD Discharge Date: 07/21/18 Summary Hospital Course: (1) DKA (diabetic ketoacidoses): She was treated on the DKA protocol, with IV insulin, IV fluids, potassium and other electrolytes followed closely and supplemented per the protocol. Once she was no longer obtunded, the blood sugars normalized and the anion gap was closed, she was about to be started on her home insulin regimen along with oral intake this morning. She decided to leave immediately and so the entire focus of the hospitalist and the staff's attention in the intensive care unit was turned to discharging her at 9 in the morning. She was quite hostile with me and did not appreciate me asking her about her methamphetamine use in relationship to the bizarre behaviors she was admitted with. ?Get out? She insisted that I was lecturing her on her life, when I had just asked a question about when or how she used meth. The potassium of 3.2 was corrected this morning. Qualifiers: Diabetes mellitus complication detail: Diabetes mellitus type: Current visit: Yes Status: Acute (2) Altered mental status: Problem details: This resolved as expected as the effects of the methamphetamines and the acidosis were diminished. Qualifiers: Altered mental status type: coma Coma depth: [place] coma 3-8 Coma timing: unspecified coma timing Qualified Code(s): R40.2430 - [place] coma scale score 3-8, unspecified time Current visit: No Status: Acute (3) Poorly controlled diabetes mellitus: Problem details: Per her significant other she is not careful with her diet and apparently goes into DKA quickly. He said in the ED that she has some depression but she would not allow any discussion of any issues in her life this morning. Status: Acute Left hand Cellulitis - Sirisha was the organism growing on this from her last admission. She was treated with Diflucan and vancomycin and the redness today is diminished. She has a significant ulcer over the knuckle on that middle finger. She says she will continue taking the Diflucan and had finished a 2 week course previously. Methamphetamine Use - she became quite angry when I asked her about this. She ?knows her rights? and insisted that I leave the room without any formal medical discharge exam. Total time today of 31 min. Exam Vital Signs (past 8 hours): - 07/21/18 02:00 07/21/18 05:08 07/21/18 06:00 Temperature 99.1 F Pulse Rate 98 H 101 H 103 H Respiratory Rate 14 17 14 Blood Pressure 99/71 98/67 97/59 L Pulse Oximetry 97 93 93 07/21/18 08:00 Temperature 99.3 F Pulse Rate 107 H Respiratory Rate 14 Blood Pressure 113/61 Pulse Oximetry 93 Oxygen Delivery Method Nasal Cannula Oxygen Flow Rate 2 Objective Labs Result Diagrams: 07/19/18 17:20 07/21/18 04:41 Labs: Laboratory Results - last 24 hr 07/20/18 07/20/18 07/20/18 14:49 14:49 Unknown Sodium 143 143 Potassium 4.1 3.8 Chloride 116 H 116 H Carbon Dioxide 17 L 13 L BUN 17 Creatinine 0.40 L Estimated GFR > 60.0 BUN/Creatinine Ratio 42.5 H Glucose 195 H Calcium 8.1 L Magnesium 1.7 07/21/18 04:41 Sodium 137 Potassium 3.2 L Chloride 111 H Carbon Dioxide 21 L BUN 13 Creatinine 0.40 L Estimated GFR > 60.0 BUN/Creatinine Ratio 32.5 H Glucose 158 H Calcium 8.1 L Magnesium Discharge Plan Discharge Plan Patient Disposition: Home Discharge comment: She became very upset when I asked her about Meth use in relationship to her extreme agitation. She told me to leave the room and would not allow an exam today. Discharge Med Rec/Prescriptions Prescriptions: New insulin glargine [Lantus Solostar U-100 Insulin] 100 unit/mL (3 mL) Insulin Pen 25 unit subcut BID Qty: 2 RF: 0 fluconazole 100 mg tablet 100 mg PO DAILY Qty: 14 RF: 0 Continue ofloxacin 0.3 % drops 1 drp ophthalmic (eye) DIRECTED RF: 0 acyclovir 800 mg tablet 800 mg PO DAILY RF: 0 insulin aspart U-100 100 unit/mL solution 2 - 18 units subcut AC RF: 0 nicotine 21 mg/24 hr patch 24 hour 21 mg Topical DAILY RF: 0 insulin glargine [Lantus U-100 Insulin] 100 unit/mL solution 25 unit SUBCUT BID RF: 0 Discontinued levofloxacin 750 mg tablet 750 mg PO DAILY 10 Days Qty: 10 RF: 0 clindamycin HCl 300 mg capsule 300 mg PO QID RF: 0 Visit Report/Discharge Packet Instructions: DI for Diabetic Ketoacidosis Visit Report Forms: Stroke Signs & Symptoms Discharge Data Attending Provider: Sekou Moura Admit Date/Time: 07/19/18 17:34 Discharges patient from system. Discharge Date/Time: 07/21/18 12:55 Quality VTE Deep Vein Thrombosis/Pulmonary Embolism Present on Admission: No
--- NOTE | 2018-07-21 10:37 | PC.NURSE ---
Addendum entered by Sherman Le R.N. 07/21/18 12:49: Discharge packet and rxs given to pt. Pt declines formal discharge education. She states she will review materials on her own and let us know if she has any questions. She states she will make her own f/u appt. PIV were dc'd with cath tips intact. She states she does not have to urinate since removal of edwards catheter and she refuses to stay to monitor urinary pattern. DC Woodworking Belt Sander set up cab for ride home. Pt dressed self and transferred independently from bed to w/c. Escorted to exit via w/c by [employer] in no acute distress. Original Note: Pt states she is leaving today. She states that she will discharge whether or not an order is placed by the doctor. She removes own heart monitor, BP cuff, O2. She requests edwards out and IVFs off (done). She states she needs rx for lantus. Notified Dr. Moura of pt's wishes and rx needs. A discharge order is obtained and rxs written. Called to urban and regional planner for assistance with transportation home.
--- NOTE | 2018-07-21 12:59 | CM.DANOTE ---
Discharge Planning/Care Management DCP/Discharge Per MD: Patient ready to discharge home today. Call from JAYSON/Sherman: patient needs assistance with transportation. Patient does have medicaid and was brought to ED by EMS. Patient also would like BF/Arvind to fiber picker? or be at home? Some confusion over Arvind's ability to enter . Arvind was previously escorted out of hospital. Called ACCOUNT LIAISON and information surrounding Arvind was unsure. Called security: informed that [employer] attempted to serve Arvind a trespass order but Arvind fled before being notified. Security is willing to allow Arvind to fiber picker patient with application security architect. Met with patient: patient was agitated with staff and informed SW she did not wish to talk to me. SW asked patient what she would like to do regarding transportation and how SW can help. Patient informed SW that she would like Arvind to be called and notify of discharge since she does not have a [place]zon to house. RN/Sherman attempted to call Arvind multiple times with no answer and a full voicemail. SW informed patient and patient stated she didn't want to talk to SW and just wants to leave. Called [employer]: Cab will arrive by 1300. SW notified patient and patient agreeable to plan. RN Notified. Plan: Patient to discharge today via [employer]. Patient refused full assessment.SW was unable to fully evaluate patient's discharge planning needs. CM Discharge Assessment Start: 07/21/18 12:58 Freq: Status: Active Protocol: Document 07/21/18 12:58 (Rec: 07/21/18 12:58 [id number]) Discharge Planning Assessment Assigned Wafer Polishing Worker REY Archer Advance Directives? No Advance Directives on File No History Provided By Patient Medical Record Household Members significant other Independent with ADL's Yes Is patient alert and oriented? Yes Discharge Plan Home Transportation Arrangement Significant other Referrals Initiated Other Additional Comment Patient declined need for any community resources. Whiteboard Updated in Patient Room with Yes name and ext. # of Wafer Polishing Worker Please Provide Date Initial DC 07/21/18 Assessment Was Performed
[2018-07-22 15:42] LABS: Fractionated Inspired Oxygen 0.21
== END 2018-07-21 12:55 | disposition home or self-care (01) | DRG 420 ==
LOC: ED 17:33 → ICU 07-20 10:20
PROVIDERS: Admitting Provider Family Medicine; Emergency Provider Emergency Medicine; Visit Provider Family Medicine
DX: E10.11 Type 1 diabetes mellitus with ketoacidosis with coma (principal); Z79.4 Long term (current) use of insulin; L03.114 Cellulitis of left upper limb; L98.499 Non-pressure chronic ulcer of skin of other sites with unspecified severity; F15.10 Other stimulant abuse, uncomplicated; R40.2352 Coma scale, best motor response, localizes pain, at arrival to emergency department; R40.2122 Coma scale, eyes open, to pain, at arrival to emergency department; R40.2212 Coma scale, best verbal response, none, at arrival to emergency department; F17.210 Nicotine dependence, cigarettes, uncomplicated
CPT/HCPCS: 36415; 36600; 51701; 71045; 80048; 80051; 80053; 80305; 81003; 81025; 82009; 82805; 82947; 82962; 83605; 83735; 85025; 87040; 87797; 96361; 96365; 99284; 99285; J1450; J1630; J3370; J3480; J7050